=== PATIENT | female | born 1945 | race Caucasian/White ===

== ENCOUNTER → 2018-08-05 16:51 | Outpatient (CLI) | payer MEDICARE ==
[2010-04-04 13:32] VITALS: BMI 24.9
[~2018-08-05 16:51] MED LIST: ASPIRIN325 MG PO; NORCO 5/325 TAB1 TAB PO; TYLENOL PM1 TAB PO; VALIUM 2 MG TAB2 MG PO; VITAMIN D31000 UNI2 PO; ZANAFLEX4 MG PO
[2018-08-11 07:41] VITALS: BMI 24.6
== END | disposition home or self-care (01) ==
LOC: D.MAMMO 13:30
DX: Z85.3 Personal history of malignant neoplasm of breast (principal)

== ENCOUNTER 2018-08-11 06:25 | Day surgery (SDC) | payer MEDICARE ==
[~2018-08-11] VITALS: Ht 152.4 cm; Wt 57.3 kg
--- NOTE | ~2018-08-11 | OP ---
PATIENT NAME: AMBREEN SCOTT MEDICAL RECORD: [id number] :47 [facility] [place] DATE:08/11/18 SURGEON: NANCI GOMEZ DO DATE OF OPERATION: 08/11/2018 PROCEDURE: Colonoscopy with polypectomy. INDICATIONS FOR PROCEDURE: Abnormal findings on PET scan with an area of increased uptake in the distal descending colon along a previously resected site as well as a family history positive for colon cancer, history of malignant tumor of the colon, and history of malignant tumor of the rectum. SCOPE: K1 Speed video pediatric colonoscope. MEDICATIONS: Propofol 450 mg IV per anesthesia. WITHDRAWAL TIME: 29 minutes. ESTIMATED BLOOD LOSS: Minimal. COMPLICATIONS: None. FINDINGS: Informed consent was given. The patient was made comfortable with the above medication. After reaching an adequate level of sedation by slow IV push, the patient was placed on her left side. A digital rectal examination was performed and was normal. The endoscope was then advanced under direct visualization through the rectum to the cecum, confirmed by the presence of the ileocecal valve. In the cecum, there was an area that appeared to be a conglomerate of multiple flat and small polyps. The whole site itself measured approximately 1.2 cm x 1 cm. The area was lifted using normal saline and the majority of these polyps were removed using endoscopic mucosal resection technique with a hot snare. The remaining tissue was removed using a hot forceps and the entire area was cauterized. There was another polyp located in the sigmoid colon, which measured approximately 6 mm in diameter. It was semi-pedunculated. It was removed using a hot snare in one piece and completely retrieved. There were no other polyps visualized on today's examination, but the prep was inadequate as there was still a significant amount of stool, which could not be removed from the colon. Wjmh-pf-rgyizvwf diverticulosis was seen in the descending and sigmoid colon. Retroflexion was not performed due to stool being located in the rectal vault. The endoscope was withdrawn from the patient. The patient tolerated the procedure well and there were no complications. IMPRESSION: 1. Conglomerate of cecal polyps removed using a combination of endoscopic mucosal resection technique and hot forceps. 2. Sigmoid polyp removed using hot snare. 3. Cvpl-jd-uylryoda diverticulosis of the descending and sigmoid colon. 4. Inadequate prep. PLAN AND RECOMMENDATIONS: 1. Discharge home when recovery parameters are met. 2. Follow up biopsy specimen results. 3. High-fiber diet. 4. Continue current medications. OPERATIVE REPORT [id number] AMBREEN SCOTT 5. Recall colonoscopy in 4-6 weeks utilizing a different prep. It would be okay to use a MiraLax prep and consider adding milk of mag or magnesium citrate. TRANSINT:[id number] Voice Confirmation ID: [id number] DOCUMENT ID: [id number] NANCI GOMEZ DO at 1354 CC: [id number] DICTATION DATE: 08/11/18926 FINANCIAL ADVISOR TRAINEE: 08/11/18 1101 ADM IN [facility] [address] [place] [address]
[2018-08-11 07:03] LABS: BASOPHILS 0.5 % (0-2); EOSINOPHILS 1.8 % (0-7); HEMATOCRIT 37.2 % (36.0-48.0); HEMOGLOBIN 11.2 g/dL (12-16); IMMATURE GRANULOCYTES 0.5 % (0-5); LYMPHOCYTES 25.3 % (15-50); MCH 27.3 pg (26.0-34.0); MCHC 30.1 g/dL (31.0-37.0); MCV 90.5 fL (80.0-100.0); MEAN PLATELET VOLUME 9.4 fL (7.4-10.4); MONOCYTES 7.7 % (2-11); NEUTROPHILS 64.2 % (40-80); RBC 4.11 10x6/uL (4.00-5.40); RDW 15.7 % (11.5-14.5)
[2018-08-11 07:04] LABS: PLATELET COUNT 379 10x3/uL (130-400)
[2018-08-11 07:14] LABS: ANION GAP 12.3 mmol/L (8-16); CALCIUM 9.5 mg/dL (8.5-10.1); CARBON DIOXIDE 31.8 mmol/L (21.0-32.0); CREATININE - SERUM 0.9 mg/dL (0.6-1.3); POTASSIUM - SERUM 4.1 mmol/L (3.5-5.1)
[2018-08-11 07:41] VITALS: Ht 152.4 cm; Wt 57.3 kg
[2018-08-11] MEDS ORDERED: NORCO 5/325 TAB1 TAB PO (07:46)
[2018-08-11] MEDS ORDERED: VALIUM 2 MG TAB2 MG PO (07:47)
[2018-08-11] MEDS ORDERED: ASPIRIN325 MG PO (07:48)
[2018-08-11] MEDS ORDERED: VITAMIN D31000 UNI2 PO (07:49)
[2018-08-11] MEDS ORDERED: TYLENOL PM1 TAB PO (07:49)
[2018-08-11] MEDS ORDERED: ZANAFLEX4 MG PO (07:50)
== END 2018-08-11 10:45 | disposition home or self-care (01) ==
LOC: OBSVTIME → D.OPS 06:25 → D.SDCHOLD 10:16 → OBSVTIME 10:16 → D.SDCHOLD 10:16 → D.OPS 10:45
PROVIDERS: Anesthesiology
DX: K63.5 Polyp of colon (principal); K57.90 Diverticulosis of intestine, part unspecified, without perforation or abscess without bleeding; F32.9 Major depressive disorder, single episode, unspecified; F41.9 Anxiety disorder, unspecified; Z85.038 Personal history of other malignant neoplasm of large intestine; Z85.048 Personal history of other malignant neoplasm of rectum, rectosigmoid junction, and anus; Z72.0 Tobacco use

== ENCOUNTER 2019-03-04 08:56 | Day surgery (SDC) | payer MEDICARE ==
[~2019-03-04] VITALS: Ht 152.4 cm; Wt 56.4 kg
[2019-03-04 09:50] LABS: CALCIUM 9.5 mg/dL (8.5-10.1); CARBON DIOXIDE 32.9 mmol/L (21.0-32.0); CREATININE - SERUM 0.8 mg/dL (0.6-1.3); POTASSIUM - SERUM 3.9 mmol/L (3.5-5.1)
[2019-03-04] MEDS ORDERED: PHENERGAN25 M1 PO (09:52)
[2019-03-04 09:53] LABS: BASOPHILS 0.5 % (0-2); EOSINOPHILS 3.3 % (0-7); HEMATOCRIT 32.3 % (36.0-48.0); HEMOGLOBIN 9.4 g/dL (12-16); IMMATURE GRANULOCYTES 0.4 % (0-5); LYMPHOCYTES 23.2 % (15-50); MCH 25.7 pg (26.0-34.0); MCHC 29.1 g/dL (31.0-37.0); MCV 88.3 fL (80.0-100.0); MEAN PLATELET VOLUME 9.3 fL (7.4-10.4); MONOCYTES 8.4 % (2-11); NEUTROPHILS 64.2 % (40-80); PLATELET COUNT 380 10x3/uL (130-400); RBC 3.66 10x6/uL (4.00-5.40); RDW 18.4 % (11.5-14.5); WBC 10.8 10x3/uL (4.8-10.8)
[2019-03-04 09:56] VITALS: BP 122/67; Ht 152.4 cm; Wt 56.4 kg
--- NOTE | 2019-03-06 16:05 | OP ---
PATIENT NAME: AMBREEN SCOTT MEDICAL RECORD: [id number] :47 LOCATION:[facility] ADMISSION DATE: SURGEON: NANCI GOMEZ DO DATE OF OPERATION: 03/04/2019 PROCEDURE: Colonoscopy with polypectomy, biopsies, and tattooing. INDICATIONS FOR PROCEDURE: Abnormal findings on PET scan of the digestive tract on 02/27/2018 with increased uptake at a prior anastomosis, status post resection, chronic constipation, personal history of malignant tumor of the colon. SCOPE: Olympus video pediatric colonoscope. MEDICATIONS: Propofol 500 mg IV per anesthesia. ESTIMATED BLOOD LOSS: Minimal. COMPLICATIONS: None. FINDINGS AND DESCRIPTION OF PROCEDURE: Informed consent was given. The patient was made comfortable with the above medication. After reaching an adequate level of sedation by slow IV push, the patient was placed on her left side. The digital rectal examination was performed and was normal. The endoscope was then advanced under direct visualization through the rectum, to the ileocolonic anastomosis at approximately 50 to 55 cm from the anal verge. The endoscope was slowly withdrawn and the mucosa was carefully examined. The prep quality was fair. A significant amount of time was spent irrigating the colon, so that the entire mucosa could be seen. Near the ileocolonic anastomosis, there were 2 separate polyps that were benign-appearing. One was sessile, measuring approximately 2-3 mm in diameter and the other was more flat, measuring approximately 4-5 mm in diameter. They were both removed using a hot snare in one piece and completely retrieved. There were 2 polyps located approximately 40 cm from the anal verge. They were both sessile and benign-appearing. They ranged in size from 3-5 mm in diameter and were removed using a hot snare in 1 piece. There was a juvenile polyp located also near approximately 40 cm. It was biopsied using hot forceps and cauterized. A proximal anastomosis was located at approximately 30 cm from the anal verge. At this site, there was a polyp, which was benign appearing and sessile. It measured approximately 4-mm in diameter and was removed using a hot snare. There was also a tumor located at this site, which appeared to be somewhat located within a possible diverticulum that is a result of a previous resection and anastomosis. The site was ulcerated and very friable and bled when contacted. Multiple cold forceps biopsies were taken from this site to submit for pathology. The tumor itself measured approximately 1.5-2 cm in size. Three separate Dilma ink injections were made for tattooing purposes surrounding the tumor itself. On this procedure, retroflexion was performed, but there was not adequate amount of room to evaluate the rectal wall well. The endoscope was withdrawn from the patient. The patient tolerated the procedure well and there were no immediate complications. IMPRESSION: 1. Anastomotic tumor located approximately 30 cm, which was biopsied and tattooed. 2. Multiple polyps as described above, removed using a combination of a hot OPERATIVE REPORT [id number] AMBREEN SCOTT snare and hot forceps. PLAN AND RECOMMENDATIONS: 1. Discharge home when recovery parameters are met. 2. Follow up biopsy specimen results. 3. The patient will return to Dr. Wilson for further intervention of what appears to be recurrent versus residual colon cancer at the anastomotic site at approximately 30 cm. 4. Followup colonoscopies will be at the discretion of Dr. Wilson and the patient. TRANSINT:[id number] Voice Confirmation ID: [id number] DOCUMENT ID: [id number] NANCI GOMEZ DO at 1605 CC: [id number] DICTATION DATE: 03/04/19 1136 ASSISTANT MANAGER RETAIL: 03/04/19 1247 [facility] 03/04/19 [place] [id number] [place] [address]
== END 2019-03-04 12:25 | disposition home or self-care (01) ==
LOC: D.OPS 08:56
PROVIDERS: Anesthesiology; ATTEND Internal Medicine Gastroenterology
DX: C18.7 Malignant neoplasm of sigmoid colon (principal); D12.5 Benign neoplasm of sigmoid colon; K59.09 Other constipation; Z85.038 Personal history of other malignant neoplasm of large intestine; Z01.812 Encounter for preprocedural laboratory examination

== ENCOUNTER 2019-03-22 18:58 | Emergency (ER) | payer MEDICARE ==
[~2019-03-22] VITALS: Ht 152.4 cm; Wt 56.2 kg
[~2019-03-22 18:58] MED LIST changes: +PHENERGAN25 M1 PO
[2019-03-22 19:16] VITALS: Ht 152.4 cm; Wt 56.2 kg
[2019-03-22] MEDS ORDERED: PROZAC10 MG PO (19:17)
[2019-03-22 20:50] LABS: APPEARANCE CLEAR (CLEAR); BILIRUBIN NEGATIVE (NEGATIVE); COLOR YELLOW (YELLOW); GLUCOSE NEGATIVE (NEGATIVE); KETONE NEGATIVE (NEGATIVE); NITRITE NEGATIVE (NEGATIVE); PROTEIN NEGATIVE (NEGATIVE); UROBILINOGEN NORMAL (NORMAL)
[2019-03-22 21:47] VITALS: BP 136/63
== END 2019-03-22 21:47 | disposition home or self-care (01) ==
LOC: D.ER 18:58
PROVIDERS: Family Medicine
DX: S32.059A Unspecified fracture of fifth lumbar vertebra, initial encounter for closed fracture (principal); X58.XXXA Exposure to other specified factors, initial encounter; Y93.9 Activity, unspecified; Y92.89 Other specified places as the place of occurrence of the external cause

== ENCOUNTER 2019-05-04 17:09 | Inpatient (IN) | payer MEDICARE ==
[~2019-05-04] VITALS: Ht 165.1 cm; Wt 57.2 kg
--- NOTE | ~2019-05-04 | OP ---
PATIENT NAME: AMBREEN SCOTT MEDICAL RECORD: [id number] :47 LOCATION:[id number] ADMISSION DATE:05/12/19 SURGEON: MARK PERRIN MD DATE OF OPERATION: 05/12/2019 PREOPERATIVE DIAGNOSES: 1. Recurrent colon cancer. 2. Orr syndrome. 3. COPD. 4. Tobacco dependence syndrome. 5. Vertebral body fracture. POSTOPERATIVE DIAGNOSES: 1. Recurrent colon cancer. 2. Orr syndrome. 3. COPD. 4. Tobacco dependence syndrome. 5. Vertebral body fracture. PROCEDURES: 1. Hand-assisted laparoscopic subtotal colectomy. 2. Laparoscopic extensive lysis of adhesions. 3. Abdominal wound VAC placement. SURGEON: Mark Perrin MD REPORT OF PROCEDURE: The patient's abdomen was prepped and draped in sterile fashion. A cutdown was made in the midline surrounding the patient's umbilicus. An electrocautery was used to dissect through the subcutaneous tissues and we encountered a large hernia at the umbilical region. We entered through the hernia sac and penetrated the abdominal cavity. There were some adhesions present to the anterior abdominal wall and these were taken down with blunt dissection and occasional sharp dissection. We eventually were able to make a large enough the ring so we could place the Gelport wound protector and then the Gelport was inserted with a 5-mm trocar within it. We insufflated the abdomen and placed a 5-mm trocar in the right upper quadrant and another in the epigastric region. We began dissection of the adhesions to the anterior abdominal wall. These were mainly adhesions of the omentum, but some of the small bowel was adherent to the wall. Careful tedious dissection was performed to take all of the adhesions down including some pretty dense adhesions in the pelvis of the small bowel to the pelvic wall and to the colon. Once we had the small bowel completely freed up, then we took down the white line of Toldt on the left lateral abdomen. We were able to mobilize this portion of the colon medially, but there were a lot of adhesions present from her previous sigmoid colectomy. The splenic flexure was mobilized. As we came down the transverse colon, we dissected the tissues off of the superior aspect of the colon, which included some scar tissue and adhesions along with the omentum. As we came to the proximal transverse colon, we could see an enterocolonic anastomosis from previous right hemicolectomy. We eventually eviscerated the transverse colon and the old anastomosis through the wound protector. The small bowel was transected using a 75 blue load CARMEN stapler. The mesentery was then taken down with sequential clamp and tie technique all the way around towards the proximal aspect of the colon in the area of the sigmoid colon. The patient had a large mass present at the splenic flexure, which was adherent to the lateral wall of the abdomen. Lateral portion of the abdominal wall plus this mass were all OPERATIVE REPORT [id number] AMBREEN SCOTT excised with the specimen. We took down the mesentery at its base using clamp and tie technique with 3-0 silks. We eventually went back in laparoscopically and were able to transect the colon at the pelvic reflection by placing a window in the mesentery and coming through with a 55 blue load Endo-CARMEN stapler. The mesentery was then taken down with 55 white load Endo-CARMEN stapler and this portion of the colon was sent off for permanent specimen. We then eviscerated the small bowel and opened up the distal end of the small bowel in order to place a 21 EEA stapler anvil through the antimesenteric side of the small bowel. Once this was done, then we stapled off the end of the small bowel using a 30 blue load TA stapler and oversewed the staple line with Lemberted 3-0 silks. We placed this back into the abdominal cavity and then ran the multiple rectal dilators up through the anus; but with placement of the 29 dilator, we penetrated the posterior aspect of the patient's rectum. For this reason, we ended up taking another portion of the rectum proximally using a 55 blue load Endo-CARMEN stapler and the mesentery was taken down with a 55 white load Endo-CARMEN stapler. The patient's left ureter was visualized through this portion of the case and was protected through this dissection. We then placed a 21 EEA stapler through the rectum and performed an anastomosis under direct visualization. At the conclusion of this, we had 2 intact rings of tissue present in the stapler and we checked the staple line by instilling air through the rectum with the anastomosis under water. There was no sign of any leak present. We then irrigated out the abdomen thoroughly with normal saline. The patient had some bleeding from a 12-mm trocar, which had been placed in the right lower quadrant. The internal aspect of this was oversewn with [id number]-ta-yaxnv 3-0 Vicryl and the fascia was closed anteriorly with a single interrupted #0 Vicryl. There did not appear to be any further bleeding present at that time. We then closed the trocar sites with jatinder. The midline fascia was closed with running #1 loop PDS times 2 and a wound VAC was applied. COMPLICATIONS: None. CONDITION: Stable. ANESTHESIA: General endotracheal. BLOOD LOSS: 300 mL. TRANSINT:[id number] Voice Confirmation ID: [id number] DOCUMENT ID: [id number] MARK PERRIN MD CC: AMADOU MCFARLANE MD and NOVA ARTEAGA [id number] DICTATION DATE: 05/12/19 1513 ENVIRONMENTAL OFFICER: 05/12/19 1604 ADM IN [facility] [address] [place] [address]
--- NOTE | ~2019-05-04 | DS ---
PATIENT:AMBREEN SCOTT :47 MEDICAL RECORD: [id number] DISCHARGE SUMMARY ADMISSION DATE: 05/12/19 DISCHARGE DATE: 05/18/19 DATE OF ADMISSION: 05/12/2019. DATE OF DISCHARGE: 05/18/2019. ADMISSION DIAGNOSES: 1. Recurrent colon cancer. 2. Orr syndrome. 3. Chronic obstructive pulmonary disease, on chronic O2. 4. Ventral incisional hernia. 5. Chronic anemia. DISCHARGE DIAGNOSES: 1. Recurrent colon cancer. 2. Orr syndrome. 3. Chronic obstructive pulmonary disease, on chronic O2. 4. Ventral incisional hernia. 5. Chronic anemia. PROCEDURE: 1. Hand-assisted laparoscopic subtotal colectomy with ileorectal anastomosis. 2. Ventral hernia repair without mesh. CONSULTATIONS: None. REPORT OF HOSPITALIZATION: The patient was admitted to the hospital after a successful hand-assisted laparoscopic subtotal colectomy with repair of a ventral incisional hernia. Postoperatively, the patient had an ileus that lasted for a few days, eventually we were able to clamp the patient's NG tube and allowed her to have some oral intake, which she tolerated. Over the next couple of days, she began having bowel function starting with passage of flatus and followed by a bowel movement on the day of discharge. She was tolerating a regular diet at the time of discharge without complication. She had some abdominal discomfort, but most of her pain was in her back where she has a known fracture. 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 The patient had a wound VAC in place for the hand port near the umbilicus. This was healing in nicely and was visualized on 2 separate occasions during wound VAC changes. On the day of discharge, the patient was down to 3 liters O2, which she normally uses about 2 liters of O2 at home. She was able to ambulate with her normal restrictions and her main complaint was pain in the back. DISCHARGE INSTRUCTIONS: Return to clinic or call with any questions or concerns, fevers, chills, nausea, vomiting or worsening abdominal pain. ACTIVITIES: No heavy lifting or straining for 6 weeks postoperatively. FOLLOWUP: In clinic with me in 2 weeks. DISCHARGE MEDICATIONS: Resume home meds with the inclusion of Seligman 10s. DISCHARGE SUMMARY REPORT [id number] AMBREEN SCOTT TRANSINT:[id number] Voice Confirmation ID: [id number] DOCUMENT ID: [id number] YUE PERRIN MD CC: [id number] DICTATION DATE: 05/18/19 1336 PORT DRIER: 05/19/19 0003 DIS IN 05/18/19 [facility] [address] [place] [id number]
[~2019-05-04 17:09] MED LIST changes: +HYDROCODON-ACE1 EAC7 PO; -NORCO 5/325 TAB1 TAB PO; +PROZAC10 MG PO
[2019-05-11 11:54] LABS: BASOPHILS 0.6 % (0-2); EOSINOPHILS 4.4 % (0-7); HEMATOCRIT 40.3 % (36.0-48.0); HEMOGLOBIN 12.8 g/dL (12-16); IMMATURE GRANULOCYTES 0.3 % (0-5); LYMPHOCYTES 27.2 % (15-50); MCH 31.5 pg (26.0-34.0); MCHC 31.8 g/dL (31.0-37.0); MCV 99.3 fL (80.0-100.0); MEAN PLATELET VOLUME 9.6 fL (7.4-10.4); MONOCYTES 9.1 % (2-11); NEUTROPHILS 58.4 % (40-80); RBC 4.06 10x6/uL (4.00-5.40); RDW 19.4 % (11.5-14.5)
[2019-05-11 11:58] LABS: PLATELET COUNT 278 10x3/uL (130-400)
[2019-05-11 12:07] LABS: CALC OSMOLALITY 277 mosm/kg (275-300); CALCIUM 9.3 mg/dL (8.5-10.1); CARBON DIOXIDE 33.6 mmol/L (21.0-32.0); CHLORIDE - SERUM 102 mmol/L (98-107); CREATININE - SERUM 0.7 mg/dL (0.6-1.3); GLUCOSE 87 mg/dL (74-106); POTASSIUM - SERUM 4.3 mmol/L (3.5-5.1); SODIUM 141 mmol/L (136-145); UREA NITROGEN 8 mg/dL (7-18); eGFR NON AFRICAN AMERICAN 87 mL/min (90-120)
[2019-05-12] VITALS (8 sets, daily range): BP systolic 93–134; BP diastolic 44–72; BMI 21.0
[2019-05-12 09:10] LABS: APTT 34.3 SECONDS (22.8-39.4); INR 1.13 (0.85-1.17)
--- NOTE | 2019-05-12 16:52 | NUR ---
RECIEVED PT FROM PACU. LYING ON LEFT SIDE WITH EYES CLOSED. NG NOTED TO LIS WITH GREENISH DRAINAGE. OXYGEN AT 4LNC. BLOUNT PATENT WITH YELLOW URINE. SCDS ON BILAT. WOUND VAC IN PLACE TO ABDOMINAL WOUND TO 125MM/hG. 2 BANDAIDS NOTED TO UPPER ABDOMEN WITH NO DRAINAGE NOTED. FAMILY AT BEDSIDE. AROUSES TO VOICE BUT DOES NOT COMPLAIN OF PAIN CURRENTLY. STATES IM COLD. COVERED IN BLANKETS AND HEAD WRAPPED IN BLANKET. CALL LIGHT IN REACH
--- NOTE | 2019-05-12 19:07 | NUR ---
CONSULTED ANESTHESIA REGARDING DECREASED BLOOD PRESSURE 90/52. VERBAL ORDERS RECEIVED FROM TRANG ZAMORA CRNA/ DR JARQUIN TO GIVE A 500CC BOLUS OF LR IN PACU NOW. VERBAL ORDERS RECEIVED AND IMPLEMENTED. WILL CONTINUE TO MONITOR.
[2019-05-13 01:32] VITALS: BP 108/66
--- NOTE | 2019-05-13 03:13 | NUR ---
I have reviewed this patient and I concur with the Shift Assessment completed by the Licensed Practical Nurse today this shift.
[2019-05-13 04:40] LABS: BASOPHILS 0.1 % (0-2); EOSINOPHILS 0 % (0-7); IMMATURE GRANULOCYTES 0.2 % (0-5); LYMPHOCYTES 10.6 % (15-50); MCH 31.3 pg (26.0-34.0); MCHC 31.5 g/dL (31.0-37.0); MCV 99.6 fL (80.0-100.0); MEAN PLATELET VOLUME 9.3 fL (7.4-10.4); NEUTROPHILS 78.1 % (40-80); RDW 19.5 % (11.5-14.5)
[2019-05-13 04:58] LABS: HEMOGLOBIN 8.4 g/dL (12-16); RBC 2.68 10x6/uL (4.00-5.40); WBC 12.4 10x3/uL (4.8-10.8)
[2019-05-13 04:59] LABS: HEMATOCRIT 26.7 % (36.0-48.0); PLATELET COUNT 207 10x3/uL (130-400)
[2019-05-13 05:23] VITALS: BP 104/60
[2019-05-13 07:45] LABS: ANION GAP 9.2 mmol/L (8-16); CALCIUM 8.1 mg/dL (8.5-10.1); CARBON DIOXIDE 28.1 mmol/L (21.0-32.0)
[2019-05-13 07:46] LABS: CREATININE - SERUM 0.9 mg/dL (0.6-1.3); POTASSIUM - SERUM 5.3 mmol/L (3.5-5.1)
[2019-05-13 08:44] VITALS: BP 83/50
--- NOTE | 2019-05-13 11:42 | NUR ---
PT REPOSITIONED ON LEFT SIDE FOR COMFORT. AROUSES EASILY. NO COMPLAINTS AT PRESENT. USING HAT MAKER NEEDED. CALL LIGHT IN REACH
[2019-05-13 12:08] VITALS: Ht 165.1 cm; Wt 57.2 kg
[2019-05-13 13:18] LABS: HEMATOCRIT 27.6 % (36.0-48.0); HEMOGLOBIN 8.6 g/dL (12-16)
[2019-05-13 13:31] VITALS: BP 98/47
--- NOTE | 2019-05-13 13:39 | MORECARE ---
CASE MANAGEMENT DISCHARGE SUMMARY PATIENT: AMBREEN SCOTT UNIT: [id number] ADM DATE: 05/12/19 AGE: 73 : 46 SEX: F ROOM/BED: D.2203 AUTHOR: MIGUEL SALGUERO PHYSICIAN: REFERRING PHYSICIAN: YUE PERRIN MD DATE OF SERVICE: 05/13/19 Discharge Plan Patient Name: AMBREEN SCOTT [facility] [facility] 1945 Planned Disposition: Anticipated Discharge Date: Discharge Date: Expected LOS: Initial Reviewer: [email or web address] Initial Review Date: 05/12/2019 Generated: 05/13/19 2:39 pm Comments DCP- Discharge Planning Updated by [email or web address]: Isabella Kate on 05/13/19 12:[address] I attempted to see patient she was sleeping with an NGT intact. No family at bedside. CM will attempt to see her at a later date Patient Name: AMBREEN SCOTT Page [id number] at 1339 All edits/amendments must be made on the electronic document DICTATION DATE: 05/13/19 133 PHOTOCOMPOSING MACHINE OPERATOR: ROGELIO 05/13/19 1339 RPT#: [id number] DC DATE: STATUS: ADM IN [facility] [address] [place] [address] END OF REPORT
--- NOTE | 2019-05-13 13:53 | NUR ---
PT SAT ON SIDE OF BED WITH THERAPY X 10 MIN. REPSOTIONED ON RIGHT SIDE FOR COMFORT. C/O PAIN-ENCOURAGED PT TO USE PEDIATRIC IMMUNOLOGIST BUTTON WHICH SHE DID. CALL LIGHT IN REACH
--- NOTE | 2019-05-13 14:04 | NUR ---
INCENTIVE SPRIOMETRY GIVEN TO PT AND INSTRUCTED IN USE. PT ABLE TO PULL 500CCML X 5 TIMES. COUGHED AFTERWARDS. EXPLAINED TO PT TO USE Q HOUR X 10 WHEN AWAKE. STATES SHE WILL TRY. ENCOURAGED TO REST AT THIS MOMENT. CALL LIGHT AND INTERPRETER TRANSLATOR IN HAND
--- NOTE | 2019-05-13 15:15 | NUR ---
DR PERRIN PAGED REGARDING REPEAT H/H RESULTS
[2019-05-13 17:21] VITALS: BP 98/58
--- NOTE | 2019-05-13 19:25 | NUR ---
LYING IN BED TALKING TO FAMILY. REPORTS PAIN IN ABD 8. LICSW DILAUDID IN USE. MILD CONFUSION NOTED. NS @ 100 MLHR INFUSING IN RT FOREARM WITHOUT DIFF. WOUND VAC NOTED TO MID ABD WITH SCANT AMOUNT OF BLOODY DRAINAGE IN TUBING. LAP SITES X3 NOTED TO ABD. NGT TO RT NARE TO LIS WITH SMALL AMOUNT OF GREEN DRAINAGE IN CANISTER. O2 @ 4L/NC. RESP NONLABORED. ANXIOUS. STATES SHE WANTS THE NGT OUT AND NEEDS TO GO HOME BY SATURDAY. RESERVE LT ARM. PAIGE ALARM ON FOR PT SAFETY. SR ELEVATED X2. CL IN REACH.
[2019-05-13 21:25] VITALS: BP 109/48
--- NOTE | 2019-05-14 01:58 | NUR ---
RESTING QUIETLY WITH EYES CLOSED. NGT TO LIS. IV INFUSING WITHOUT DIFF. NO DISTRESS. RESP EVEN AND NONLABORED. SR ELEVATED X2. CL IN REACH. PAIGE ALARM ON.
[2019-05-14 02:22] VITALS: BP 122/50
[2019-05-14 05:55] VITALS: BP 112/51
[2019-05-14 06:08] LABS: BASOPHILS 0.2 % (0-2); EOSINOPHILS 0.1 % (0-7); HEMATOCRIT 25.3 % (36.0-48.0); HEMOGLOBIN 7.7 g/dL (12-16); IMMATURE GRANULOCYTES 0.3 % (0-5); LYMPHOCYTES 13.6 % (15-50); MCH 31.3 pg (26.0-34.0); MCHC 30.4 g/dL (31.0-37.0); MEAN PLATELET VOLUME 10.2 fL (7.4-10.4); MONOCYTES 7.7 % (2-11); NEUTROPHILS 78.1 % (40-80); PLATELET COUNT 232 10x3/uL (130-400); RBC 2.46 10x6/uL (4.00-5.40); RDW 19.9 % (11.5-14.5); WBC 11.8 10x3/uL (4.8-10.8)
[2019-05-14 06:15] LABS: MCV 102.8 fL (80.0-100.0)
[2019-05-14 06:38] LABS: CALC OSMOLALITY 276 mosm/kg (275-300); CALCIUM 8.4 mg/dL (8.5-10.1); CARBON DIOXIDE 26.4 mmol/L (21.0-32.0); CHLORIDE - SERUM 107 mmol/L (98-107); CREATININE - SERUM 0.7 mg/dL (0.6-1.3); GLUCOSE 75 mg/dL (74-106); POTASSIUM - SERUM 4.6 mmol/L (3.5-5.1); SODIUM 139 mmol/L (136-145); UREA NITROGEN 12 mg/dL (7-18); eGFR NON AFRICAN AMERICAN 87 mL/min (90-120)
--- NOTE | 2019-05-14 07:47 | NUR ---
PT LAYING ON BACK AT PRESENT. HOB UP 45 DEGREES. NG TO NARE WITH GREEN LIQUID NOTED AT LIS. OXYGEN IN PLACE WITH DIMINISHED BREATH SOUNDS. COUGHS OCCASIONALLY. WOUND VAC IN PLACE TO 125MM/hG SUCTION. BLOUNT NOTED AND DRAINING. BILAT SCDS ON IN PLACE. CALL LIGHT IN REACH. ENCOURAGED TO USE MAILROOM SUPERVISOR BUTTON NEEDS FOR PAIN CONTROL.
[2019-05-14 09:41] VITALS: BP 114/55
--- NOTE | 2019-05-14 11:43 | NUR ---
PT SAT UP IN CHAIR AT BEDSIDE PER THERAPY X 1 HOUR. BACK TO BED AND BLOUNT REMOVED. COUGHED UP A LOT OF WHITE PHLEGM AFTER RT TX. CALL LIGHT IN REACH
[2019-05-14 13:51] VITALS: BP 103/45
--- NOTE | 2019-05-14 14:39 | MORECARE ---
CASE MANAGEMENT DISCHARGE SUMMARY PATIENT: AMBREEN SCOTT UNIT: [id number] ADM DATE: 05/12/19 AGE: 73 : 46 SEX: F ROOM/BED: D.2203 AUTHOR: JOSE MDOC PHYSICIAN: REFERRING PHYSICIAN: YUE PERRIN MD DATE OF SERVICE: 05/14/19 Discharge Plan Patient Name: AMBREEN SCOTT Facility: [facility]:[place] : 1945 Planned Disposition: Home or Self Care Anticipated Discharge Date: Discharge Date: Expected LOS: Initial Reviewer: [email or web address] Initial Review Date: 05/12/2019 Generated: 05/14/19 3:39 pm Comments DCP- Discharge Planning Updated by [email or web address]: Isabella Kate on 05/14/19 1:[address] Patient Name: AMBREEN SCOTT Admission Status: Elective Accout number: [id number] Admission Date: 05-12-2019 : 1945 Admission Diagnosis:MALIGNANT NEOPLASM OF COLON, UNSPECIFIED Attending: YUE PERRIN Current LOS: 2 Anticipated DC Date: Planned Disposition: Home or Self Care Primary Insurance: MEDICARE A & B Discharge Planning Comments: CM met with patient to complete initial dc planning assessment. CM educated patient on the CM role and verbal consent given by patient to complete assessment. Patient lives at home with her where she is independent with her care. At discharge patient plans to return home and feels this is a safe discharge. CM discussed availability of home health, rehab services, and medical equipment. She has home O2 and a nebulizer from [facility]. JAXON signed and placed in chart. At discharge her will be driving her home when she is discharged. Patient denied known discharge needs at this time. CM will continue to follow and will assist as needed with dc plans/needs. Spooling Supervisor: Isabella Kate DCP- Discharge Planning Updated by [email or web address]: Isabella Kate on 05/13/19 12:[address] I attempted to see patient she was sleeping with an NGT intact. No family at bedside. CM will attempt to see her at a later date DCPIA - Discharge Planning Initial Assessment Updated by [email or web address]: Isabella Kate on 05/14/19 2:32 pm * Is the patient Alert and Oriented? Yes * How many steps to enter\exit or inside your home? * PCP [facility] ([facility]) * Pharmacy [facility] [address] * Preadmission Environment Home with Family * ADLs Independent * Equipment Nebulizer Oxygen * List name and contact numbers for known caregivers / representatives who currently or will assist patient after discharge: DIANE SCOTT (SPOUSE) [phone] * Verbal permission to speak to the caregivers and representatives has been obtained from the patient. N/A * Community resources currently utilized None * Additional services required to return to the preadmission environment? No * Can the patient safely return to the preadmission environment? Yes * Has this patient been hospitalized within the prior 30 days at any hospital? No Coverage Notice Reviewer: [id number] Nadiya Kate Notice Issued Date-Time: 05/14/2019 14:30 Notice Type: Patient Choice Letter Notice Delivered To: Patient Relationship to Patient: Silk Screen Printing Racker Name: Delivery Method: - Ronel Days: Prior Verbal Notification: Recipient Understood Notice: Recipient Signature: Med Rec Note Co-signed by Attending: Coverage Notice Comment: Last DP export: 05/13/19 12:39 p Patient Name: AMBREEN SCOTT Page [id number] at 1439 All edits/amendments must be made on the electronic document DICTATION DATE: 05/14/191437 MOLD FILLING OPERATOR: ROGELIO 05/14/191437 RPT#: [id number] DC DATE: STATUS: ADM IN [facility] [address] [place] [address] END OF REPORT
[2019-05-14 17:46] VITALS: BP 121/54
--- NOTE | 2019-05-14 19:25 | NUR ---
LYING IN BED. ALERT AND ORIENTED X4. RESP EVEN AND NONLABORED. O2 @ 4L/NC. NGT NOTED TO RT NARE TO LIS WITH GREEN DRAINAGE IN CANISTER. WOUND VAC NOTED TO MID ABD WITH SCANT AMOUNT OF BLOOD IN CANISTER. SCDS ON. PROD COUGH WITH PINK TINGED SPUTUM. BOWEL SOUNDS HYPOACTIVE X4 QUADS. DENIES PASSING GAS. RATES PAIN 8 IN ABD. CHIP SILO TENDER DILAUDID IN USE BUT NOT USING VERY OFTEN. NS @ 100 MLHR INFUSING IN RT FOREARM WITHOUT DIFF. PAIGE ALARM ON FOR PT SAFETY. PT IRRITABLE. SCDS ON BUT ASKED STAFF TO REMOVE THEM BECAUSE THEY ARE HURTING HER LEGS. CL IN REACH.
[2019-05-14 21:13] VITALS: BP 134/63
--- NOTE | 2019-05-14 23:00 | NUR ---
ASSISTED UP TO BSC TO VOID. PT VOIDED 400 ML AT THIS TIME. ASSISTED BACK TO BED. IRRITABLE. ENCOURAGED TO USE NETWORK TECHNICAL ANALYST PUMP. CL IN REACH. PAIGE ALARM ON.
[2019-05-15 00:29] VITALS: BP 124/60
--- NOTE | 2019-05-15 05:00 | NUR ---
LYING IN BED WITH EYES CLOSED. HAS RESTED WELL. NO DISTRESS. RESP EVEN AND NONLABORED. SR ELEVATED X2. CL IN REACH. PAIGE ALARM ON.
[2019-05-15 05:28] VITALS: BP 145/63
[2019-05-15 06:58] LABS: BASOPHILS 0.3 % (0-2); EOSINOPHILS 0.5 % (0-7); HEMATOCRIT 25.1 % (36.0-48.0); HEMOGLOBIN 7.7 g/dL (12-16); IMMATURE GRANULOCYTES 0.6 % (0-5); LYMPHOCYTES 11.2 % (15-50); MCHC 30.7 g/dL (31.0-37.0); MCV 104.1 fL (80.0-100.0); MEAN PLATELET VOLUME 9.9 fL (7.4-10.4); MONOCYTES 5.9 % (2-11); NEUTROPHILS 81.5 % (40-80); PLATELET COUNT 244 10x3/uL (130-400); RBC 2.41 10x6/uL (4.00-5.40); RDW 19.4 % (11.5-14.5); WBC 11.7 10x3/uL (4.8-10.8)
[2019-05-15 07:21] LABS: CALC OSMOLALITY 280 mosm/kg (275-300); CALCIUM 8.3 mg/dL (8.5-10.1); CARBON DIOXIDE 24.5 mmol/L (21.0-32.0); CHLORIDE - SERUM 109 mmol/L (98-107); CREATININE - SERUM 0.7 mg/dL (0.6-1.3); POTASSIUM - SERUM 4.1 mmol/L (3.5-5.1); SODIUM 142 mmol/L (136-145); UREA NITROGEN 14 mg/dL (7-18); eGFR NON AFRICAN AMERICAN 87 mL/min (90-120)
[2019-05-15 07:25] LABS: GLUCOSE 51 mg/dL (74-106)
[2019-05-15 10:43] VITALS: BP 143/63
--- NOTE | 2019-05-15 13:00 | NUR ---
Nutrition Follow Up: Chart reviewed. Pt continues NPO. I>O Wt stable Meds and Labs reviewed Rec advancing PATRICIA when medically feasible. Rec consider starting Procalamine. RD following.
[2019-05-15 14:27] VITALS: BP 127/60
--- NOTE | 2019-05-15 15:35 | NUR ---
WOUND VAC DRESSING CHANGE DATE: 05/15/19 WOUND LOCATION: MIDLINE LOWER ABD WOUND MEASUREMENTS:6CM X 3CM X 3CM WOUND DESCRIPTION: RED/PINK MUSCLE, TENDON, OR BONE EXPOSED? NO DRAINAGE AMOUNT/DESCRIPTION: SMALL SEROSANGUINOUS ODOR? NO TYPE OF SPONGE USED AND AMOUNT: BLACK - 1 FOR WOUND BED + 1 FOR trac pad SETTINGS: -125MMHG LOW CONTINUOUS TEACHING: PURPOSE OF WOUND VAC PT TOLERATED WELL.
[2019-05-15 15:48] VITALS: BP 116/48
--- NOTE | 2019-05-15 16:38 | NUR ---
I have reviewed this patient and I concur with the Shift Assessment completed by the Licensed Practical Nurse today this shift.
--- NOTE | 2019-05-15 19:35 | NUR ---
AGITATED. YELLING AT STAFF WHILE BEING ASSISTED UP TO BSC. SOB. O2 @ 4L/NC. SAO2 88%. O2 INCREASED TO 5L/HFC AT THIS TIME. PROD COUGH WITH PINK SPUTUM. BREATH SOUNDS DIMINISHED IN RT LOBES. WOUND VAC NOTED TO ABD WTIH SCANT AMT OF BLOODY DRAINAGE. REFUSES TO WEAR SCDS. D5 1/2 NS WITH 20 MEQ KCL @ 100 ML/HR INFUSING IN RT WRIST WITHOUT DIFF. DILAUDID RETURNED GOODS REPAIRER IN USE. PAIGE ALARM IN USE FOR PT SAFETY. ENCOURAGED TO COUGH AND DEEP BREATHE AND USE I.S. CL IN REACH.
[2019-05-15 20:38] VITALS: BP 118/64
[2019-05-16] VITALS: BP 124/58
--- NOTE | 2019-05-16 03:16 | NUR ---
ASSISTED UP TO BSC. SOB. SAO2 89 WITH O2 @ 5L/HFC. NOTIFIED RT AND REQUESTED UD. RT IN ROOM AT THIS TIME. SAO2 92%. PT AGITATED.
--- NOTE | 2019-05-16 03:36 | NUR ---
PT CALLED FAMILY MEMBER TELLING THEM THAT STAFF HAS INCREASED HER O2. STILL AGITATED. ARGUES WITH ALL STAFF THAT SHE ENCOUNTERS.
[2019-05-16 04:00] VITALS: BP 116/74
--- NOTE | 2019-05-16 04:32 | NUR ---
LYING IN BED WITH EYES CLOSED. RESP NONLABORED. NO DISTRESS. JUST NOW FALLING ASLEEP AFTER BEING AWAKE MOST OF THE NIGHT. CL IN REACH. PAIGE ALARM ON.
[2019-05-16 05:45] LABS: BASOPHILS 0.2 % (0-2); EOSINOPHILS 2.6 % (0-7); HEMATOCRIT 24.6 % (36.0-48.0); HEMOGLOBIN 7.8 g/dL (12-16); IMMATURE GRANULOCYTES 0.5 % (0-5); LYMPHOCYTES 10.8 % (15-50); MCH 32.4 pg (26.0-34.0); MCHC 31.7 g/dL (31.0-37.0); MEAN PLATELET VOLUME 9.4 fL (7.4-10.4); MONOCYTES 7.7 % (2-11); NEUTROPHILS 78.2 % (40-80); PLATELET COUNT 264 10x3/uL (130-400); RBC 2.41 10x6/uL (4.00-5.40); RDW 18.7 % (11.5-14.5)
[2019-05-16 05:47] LABS: MCV 102.1 fL (80.0-100.0); WBC 8.7 10x3/uL (4.8-10.8)
[2019-05-16 05:53] LABS: CALCIUM 8.3 mg/dL (8.5-10.1); CHLORIDE - SERUM 107 mmol/L (98-107); CREATININE - SERUM 0.7 mg/dL (0.6-1.3); POTASSIUM - SERUM 3.9 mmol/L (3.5-5.1); SODIUM 142 mmol/L (136-145); eGFR NON AFRICAN AMERICAN 87 mL/min (90-120)
[2019-05-16 05:54] LABS: CALC OSMOLALITY 283 mosm/kg (275-300); CARBON DIOXIDE 30.8 mmol/L (21.0-32.0); GLUCOSE 147 mg/dL (74-106); UREA NITROGEN 8 mg/dL (7-18)
[2019-05-16 08:46] VITALS: BP 163/97
--- NOTE | 2019-05-16 09:15 | NUR ---
PT ALERT X 4. BREATH SOUNDS CLEAR BILAT, 5L HF NC. IV TO RIGHT FOREARM, PATENT, DRESSING CDI. LAP SITES TO ABDOMEN, TENDER, NON-DISTENDED AND SOFT, BOWEL SOUNDS HYPOACTIVE TO ALL MANUEL. WOUND VAC IN PLACE TO ABDOMEN, SCANT OUTPUT. PT REPORTING PAIN OF 7/10, PUBLIC SERVICE OFFICER IN PLACE, WILL MONITOR. BED LOW, CALL LIGHT IN REACH. NO OTHER NEEDS AT THIS TIME.
[2019-05-16 12:42] VITALS: BP 137/58
[2019-05-16 18:26] VITALS: BP 131/72
--- NOTE | 2019-05-16 20:00 | NUR ---
PT SITTING UP IN BED WITHOUT DISTRESS, ALERT AND ORIENTED. STATES PAIN IN ABD 10. GAVE SCHEDULED TORADOL, DILAUDID CABLE ENGINEER OUTSIDE PLANT IN USE. O2 3L/NC. LAP SITES AND INCISION WITH WOUND VAC CDI. DENIES NEEDS AT THIS TIME. CL IN REACH, WILL CTM
[2019-05-16 20:14] VITALS: BP 139/62
[2019-05-17 02:19] VITALS: BP 138/69
[2019-05-17 06:01] VITALS: BP 156/65
[2019-05-17 06:15] LABS: BASOPHILS 0.3 % (0-2); EOSINOPHILS 6.1 % (0-7); IMMATURE GRANULOCYTES 0.4 % (0-5); LYMPHOCYTES 18.4 % (15-50); MCH 31.6 pg (26.0-34.0); MCHC 31.3 g/dL (31.0-37.0); MCV 101.3 fL (80.0-100.0); MEAN PLATELET VOLUME 9.6 fL (7.4-10.4); NEUTROPHILS 65.8 % (40-80); PLATELET COUNT 290 10x3/uL (130-400); RBC 2.37 10x6/uL (4.00-5.40); RDW 18.6 % (11.5-14.5); WBC 6.9 10x3/uL (4.8-10.8)
[2019-05-17 06:19] LABS: HEMOGLOBIN 7.5 g/dL (12-16)
[2019-05-17 06:24] LABS: CALCIUM 8.6 mg/dL (8.5-10.1); CARBON DIOXIDE 34.1 mmol/L (21.0-32.0); CHLORIDE - SERUM 105 mmol/L (98-107); POTASSIUM - SERUM 3.7 mmol/L (3.5-5.1); SODIUM 141 mmol/L (136-145)
[2019-05-17 06:26] LABS: CALC OSMOLALITY 277 mosm/kg (275-300); CREATININE - SERUM 0.5 mg/dL (0.6-1.3); GLUCOSE 94 mg/dL (74-106); UREA NITROGEN 4 mg/dL (7-18); eGFR NON AFRICAN AMERICAN > 90 mL/min (90-120)
--- NOTE | 2019-05-17 09:19 | NUR ---
PT ALERT X 4. WHEEZES TO RIGHT SIDE, 3L O2 PER NC, RESPIRATIONS SHALLOW. ABDOMEN DISTENDED AND TENDER BUT SOFT, LAP SITES, WOUND VAC IN PLACE, SCANT OUTPUT. PT REPORTING PAIN OF 6/10, PROCESS CONTROL TECH IN PLACE, WILL MONITOR. IV TO RIGHT FOREARM, PATENT, DRESSING CDI. BED LOW, CALL LIGHT IN REACH. NO OTHER NEEDS AT THIS TIME.
[2019-05-17 09:50] VITALS: BP 156/63
[2019-05-17 12:59] VITALS: BP 140/62
[2019-05-17 18:47] VITALS: BP 144/60
[2019-05-17 20:00] VITALS: BP 155/61
--- NOTE | 2019-05-17 20:00 | NUR ---
PT SITTING UP IN BED WITHOUT DISTRESS, ALERT AND ORIENTED. ASSISTED UP TO BEDSIDE COMMODE AND BACK TO BED. PT SOB WITH EXERTION. IV RIGHT FA SL. PT STATES PAIN 6/10 IN ABD. GAVE NORCO ORDERED CRUSHED IN PUDDING. DENIES OTHER NEEDS. CL IN REACH, WILL CTM
[2019-05-18] VITALS: BP 150/69
[2019-05-18 04:00] VITALS: BP 128/71
[2019-05-18 08:07] VITALS: BP 148/73
--- NOTE | 2019-05-18 08:26 | NUR ---
PT ALERT X 4. REFUSED MORNING MEDICATIONS. BREATH SOUNDS CLEAR BILAT, 3L O2 PER NC. IV TO RIGHT FOREARM, SALINE LOCKED. LAP SITES TO ABDOMEN, WOUND VAC PLACE TO LOWER ABDOMEN. PT REPORTING PAIN OF 8/10, PT NOT WANTING MEDICATION AT THIS TIME. BED LOW, CALL LIGHT IN REACH. NO OTHER NEEDS AT THIS TIME.
--- NOTE | 2019-05-18 12:00 | MORECARE ---
CASE MANAGEMENT DISCHARGE SUMMARY PATIENT: AMBREEN SCOTT UNIT: [id number] ADM DATE: 05/12/19 AGE: 73 : 46 SEX: F ROOM/BED: D.2203 AUTHOR: MIGUEL SALGUERO PHYSICIAN: REFERRING PHYSICIAN: YUE PERRIN MD DATE OF SERVICE: 05/18/19 Discharge Plan Patient Name: AMBREEN SCOTT Facility: [facility]:[place] : 1945 Planned Disposition: Home or Self Care Anticipated Discharge Date: Discharge Date: Expected LOS: Initial Reviewer: [id number] Initial Review Date: 05/12/2019 Generated: 05/18/19 1:00 pm DCP- Discharge Planning Updated by [email or web address]: Isabella Kate on 05/14/19 1:[address] Patient Name: AMBREEN SCOTT Admission Status: Elective Accout number: [id number] Admission Date: 05-12-2019 : 1945 Admission Diagnosis:MALIGNANT NEOPLASM OF COLON, UNSPECIFIED Attending: YUE PERRIN Current LOS: 2 Anticipated DC Date: Planned Disposition: Home or Self Care Primary Insurance: MEDICARE A & B Discharge Planning Comments: CM met with patient to complete initial dc planning assessment. CM educated patient on the CM role and verbal consent given by patient to complete assessment. Patient lives at home with her where she is independent with her care. At discharge patient plans to return home and feels this is a safe discharge. CM discussed availability of home health, rehab services, and medical equipment. She has home O2 and a nebulizer from [facility]. JAXON signed and placed in chart. At discharge her will be driving her home when she is discharged. Patient denied known discharge needs at this time. CM will continue to follow and will assist as needed with dc plans/needs. Miller Head: Isabella Kate DCP- Discharge Planning Updated by [email or web address]: Isabella Kate on 05/13/19 12:[address] I attempted to see patient she was sleeping with an NGT intact. No family at bedside. CM will attempt to see her at a later date DCPIA - Discharge Planning Initial Assessment Updated by [email or web address]: Isabella Kate on 05/14/19 2:32 pm * Is the patient Alert and Oriented? Yes * How many steps to enter\exit or inside your home? * PCP Mariano ([facility]) * Pharmacy [facility] [address] * Preadmission Environment Home with Family * ADLs Independent * Equipment Nebulizer Oxygen * List name and contact numbers for known caregivers / representatives who currently or will assist patient after discharge: DIANE SCOTT (SPOUSE) [phone] * Verbal permission to speak to the caregivers and representatives has been obtained from the patient. N/A * Community resources currently utilized None * Additional services required to return to the preadmission environment? No * Can the patient safely return to the preadmission environment? Yes * Has this patient been hospitalized within the prior 30 days at any hospital? No External Providers External Provider: [facility] [employer] Next Contact Date: Service Request Date: Service Type: Resolution: Reviewer: Comments: Coverage Notice Reviewer: [id number] Nadiya Kate Notice Issued Date-Time: 05/14/2019 14:30 Notice Type: Patient Choice Letter Notice Delivered To: Patient Relationship to Patient: Transit Coach Operator Name: Delivery Method: - Ronel Days: Prior Verbal Notification: Recipient Understood Notice: Yes Recipient Signature: Yes Med Rec Note Co-signed by Attending: Coverage Notice Comment: JAXON to keep [employer] Last DP export: 05/14/19 1:39 p Patient Name: AMBREEN SCOTT Page 77011 at 1200 All edits/amendments must be made on the electronic document DICTATION DATE: 05/18/19 1159 ALUMNI RELATIONS MANAGER: ROGELIO 05/18/19 1159 RPT#: [id number] DC DATE: STATUS: ADM IN [facility] [address] [place] [address] END OF REPORT
--- NOTE | 2019-05-18 12:40 | MORECARE ---
CASE MANAGEMENT DISCHARGE SUMMARY PATIENT: AMBREEN SCOTT UNIT: [id number] ADM DATE: 05/12/19 AGE: 73 : 46 SEX: F ROOM/BED: D.2203 AUTHOR: MIGUEL SALGUERO PHYSICIAN: REFERRING PHYSICIAN: YUE PERRIN MD DATE OF SERVICE: 05/18/19 Discharge Plan Patient Name: AMBREEN SCOTT Facility: [facility]:[place] : 1945 Planned Disposition: Home or Self Care Anticipated Discharge Date: Discharge Date: Expected LOS: Initial Reviewer: [email or web address] Initial Review Date: 05/12/2019 Generated: 05/18/19 1:40 pm DCP- Discharge Planning Updated by [email or web address]: Isabella Kate on 05/14/19 1:[address] Patient Name: AMBREEN SCOTT Admission Status: Elective Accout number: [id number] Admission Date: 05-12-2019 : 1945 Admission Diagnosis:MALIGNANT NEOPLASM OF COLON, UNSPECIFIED Attending: YUE PERRIN Current LOS: 2 Anticipated DC Date: Planned Disposition: Home or Self Care Primary Insurance: MEDICARE A & B Discharge Planning Comments: CM met with patient to complete initial dc planning assessment. CM educated patient on the CM role and verbal consent given by patient to complete assessment. Patient lives at home with her where she is independent with her care. At discharge patient plans to return home and feels this is a safe discharge. CM discussed availability of home health, rehab services, and medical equipment. She has home O2 and a nebulizer from [facility]. JAXON signed and placed in chart. At discharge her will be driving her home when she is discharged. Patient denied known discharge needs at this time. CM will continue to follow and will assist as needed with dc plans/needs. Nail Machine Operator: Isabella Kate DCP- Discharge Planning Updated by [email or web address]: Isabella Kate on 05/13/19 12:[address] I attempted to see patient she was sleeping with an NGT intact. No family at bedside. CM will attempt to see her at a later date DCPIA - Discharge Planning Initial Assessment Updated by [email or web address]: Isabella Ktae on 05/14/19 2:32 pm * Is the patient Alert and Oriented? Yes * How many steps to enter\exit or inside your home? * PCP Mariano ([facility]) * Pharmacy [facility] [address] * Preadmission Environment Home with Family * ADLs Independent * Equipment Nebulizer Oxygen * List name and contact numbers for known caregivers / representatives who currently or will assist patient after discharge: DIANE SCOTT (SPOUSE) [phone] * Verbal permission to speak to the caregivers and representatives has been obtained from the patient. N/A * Community resources currently utilized None * Additional services required to return to the preadmission environment? No * Can the patient safely return to the preadmission environment? Yes * Has this patient been hospitalized within the prior 30 days at any hospital? No External Providers External Provider: [facility] Next Contact Date: Service Request Date: Service Type: Resolution: Reviewer: Comments: Coverage Notice Reviewer: [id number] Nadiya Kate Notice Issued Date-Time: 05/14/2019 14:30 Notice Type: Patient Choice Letter Notice Delivered To: Patient Relationship to Patient: Information Technology Associate Name: Delivery Method: - Ronel Days: Prior Verbal Notification: Recipient Understood Notice: Yes Recipient Signature: Yes Med Rec Note Co-signed by Attending: Coverage Notice Comment: JAXON to keep [employer] Last DP export: 05/18/19 11:00 a Patient Name: AMBREEN SCOTT Page 94946 at 1240 All edits/amendments must be made on the electronic document DICTATION DATE: 05/18/19 1239 MANAGER CONTRACT: ROGELIO 05/18/19 1239 RPT#: [id number] DC DATE: STATUS: ADM IN [facility] [address] [place] [address] END OF REPORT
--- NOTE | 2019-05-18 12:46 | MORECARE ---
CASE MANAGEMENT DISCHARGE SUMMARY PATIENT: AMBREEN SCOTT UNIT: [id number] ADM DATE: 05/12/19 AGE: 73 : 46 SEX: F ROOM/BED: D.2203 AUTHOR: MIGUEL SALGUERO PHYSICIAN: REFERRING PHYSICIAN: YUE PERRIN MD DATE OF SERVICE: 05/18/19 Discharge Plan Patient Name: AMBREEN SCOTT Facility: [facility]:[place] : 1945 Planned Disposition: Home or Self Care Anticipated Discharge Date: Discharge Date: Expected LOS: Initial Reviewer: [id number] Initial Review Date: 05/12/2019 Generated: 05/18/19 1:46 pm DCP- Discharge Planning Updated by [email or web address]: Isablela Kate on 05/14/19 1:[address] Patient Name: AMBREEN SCOTT Admission Status: Elective Accout number: [id number] Admission Date: 05-12-2019 : 1945 Admission Diagnosis:MALIGNANT NEOPLASM OF COLON, UNSPECIFIED Attending: YUE PERRIN Current LOS: 2 Anticipated DC Date: Planned Disposition: Home or Self Care Primary Insurance: MEDICARE A & B Discharge Planning Comments: CM met with patient to complete initial dc planning assessment. CM educated patient on the CM role and verbal consent given by patient to complete assessment. Patient lives at home with her where she is independent with her care. At discharge patient plans to return home and feels this is a safe discharge. CM discussed availability of home health, rehab services, and medical equipment. She has home O2 and a nebulizer from [facility]. JAXON signed and placed in chart. At discharge her will be driving her home when she is discharged. Patient denied known discharge needs at this time. CM will continue to follow and will assist as needed with dc plans/needs. Piano Accompanist: Isabella Kate DCP- Discharge Planning Updated by [id number]: Isabella Kate on 05/13/19 12:[address] I attempted to see patient she was sleeping with an NGT intact. No family at bedside. CM will attempt to see her at a later date DCPIA - Discharge Planning Initial Assessment Updated by [email or web address]: Isabella Kate on 05/14/19 2:32 pm * Is the patient Alert and Oriented? Yes * How many steps to enter\exit or inside your home? * PCP Mariano ([facility]) * Pharmacy [facility] [address] * Preadmission Environment Home with Family * ADLs Independent * Equipment Nebulizer Oxygen * List name and contact numbers for known caregivers / representatives who currently or will assist patient after discharge: DIANE SCOTT (SPOUSE) [phone] * Verbal permission to speak to the caregivers and representatives has been obtained from the patient. N/A * Community resources currently utilized None * Additional services required to return to the preadmission environment? No * Can the patient safely return to the preadmission environment? Yes * Has this patient been hospitalized within the prior 30 days at any hospital? No External Providers External Provider: [facility] Next Contact Date: Service Request Date: Service Type: Resolution: Reviewer: Comments: Coverage Notice Reviewer: [id number] Nadiya Kate Notice Issued Date-Time: 05/14/2019 14:30 Notice Type: Patient Choice Letter Notice Delivered To: Patient Relationship to Patient: Route Returner Name: Delivery Method: - Ronel Days: Prior Verbal Notification: Recipient Understood Notice: Yes Recipient Signature: Yes Med Rec Note Co-signed by Attending: Coverage Notice Comment: JAXON to keep [employer] Last DP export: 05/18/19 11:40 a Patient Name: AMBREEN SCOTT Page 22008 at 1246 All edits/amendments must be made on the electronic document DICTATION DATE: 05/18/19 1246 COMMERCIAL DRAFTER: ROGELIO 05/18/19 1246 RPT#: [id number] DC DATE: STATUS: ADM IN [facility] [address] [place] [address] END OF REPORT
--- NOTE | 2019-05-18 12:55 | MORECARE ---
CASE MANAGEMENT DISCHARGE SUMMARY PATIENT: AMBREEN SCOTT UNIT: [id number] ADM DATE: 05/12/19 AGE: 73 : 46 SEX: F ROOM/BED: D.2203 AUTHOR: JOSE MDOC PHYSICIAN: REFERRING PHYSICIAN: YUE PERRIN MD DATE OF SERVICE: 05/18/19 Discharge Plan Patient Name: AMBREEN SCOTT Facility: [facility]:[place] : 1945 Planned Disposition: Home or Self Care Anticipated Discharge Date: Discharge Date: Expected LOS: Initial Reviewer: [email or web address] Initial Review Date: 05/12/2019 Generated: 05/18/19 1:55 pm Comments DCP- Discharge Planning Updated by [email or web address]: Kari Robledo on 05/18/19 11:[address] CM met with patient to discuss discharge planning. She would like a BSC and a walker ordered. I called Caden with [facility] and order and clinical faxed. JAXON for [employer] and [facility] signed. I spoke with Betty and [facility] and clinical faxed. CM will continue to follow and assist with discharge planning/needs. DCP- Discharge Planning Updated by [email or web address]: Isabella Kate on 05/14/19 1:[address] Patient Name: AMBREEN SCOTT Admission Status: Elective Accout number: [id number] Admission Date: 05-12-2019 : 1945 Admission Diagnosis:MALIGNANT NEOPLASM OF COLON, UNSPECIFIED Attending: YUE PERRIN Current LOS: 2 Anticipated DC Date: Planned Disposition: Home or Self Care Primary Insurance: MEDICARE A & B Discharge Planning Comments: CM met with patient to complete initial dc planning assessment. CM educated patient on the CM role and verbal consent given by patient to complete assessment. Patient lives at home with her where she is independent with her care. At discharge patient plans to return home and feels this is a safe discharge. CM discussed availability of home health, rehab services, and medical equipment. She has home O2 and a nebulizer from [facility]. JAXON signed and placed in chart. At discharge her will be driving her home when she is discharged. Patient denied known discharge needs at this time. CM will continue to follow and will assist as needed with dc plans/needs. Employment Specialist: Isabella Garciaken DCP- Discharge Planning Updated by [id number]: Isabella Garciaken on 05/13/19 12:[address] I attempted to see patient she was sleeping with an NGT intact. No family at bedside. CM will attempt to see her at a later date DCPIA - Discharge Planning Initial Assessment Updated by [email or web address]: Isabella Humble on 05/14/19 2:32 pm * Is the patient Alert and Oriented? Yes * How many steps to enter\exit or inside your home? * PCP Mariano ([facility]) * Pharmacy [facility] [address] * Preadmission Environment Home with Family * ADLs Independent * Equipment Nebulizer Oxygen * List name and contact numbers for known caregivers / representatives who currently or will assist patient after discharge: DIANE SCOTT (SPOUSE) [phone] * Verbal permission to speak to the caregivers and representatives has been obtained from the patient. N/A * Community resources currently utilized None * Additional services required to return to the preadmission environment? No * Can the patient safely return to the preadmission environment? Yes * Has this patient been hospitalized within the prior 30 days at any hospital? No Coverage Notice Reviewer: [email or web address] Nadiya Robledo Notice Issued Date-Time: 05/18/2019 12:48 Notice Type: Patient Choice Letter Notice Delivered To: Patient Relationship to Patient: Self Pediatric Oncologist Name: Delivery Method: HAND - Hand Delivered Ronel Days: Prior Verbal Notification: Recipient Understood Notice: Yes Recipient Signature: Yes Med Rec Note Co-signed by Attending: Coverage Notice Comment: JAXON for [facility] and [facility] Last DP export: 05/18/19 11:46 a Patient Name: AMBREEN SCOTT Page 20457 at 1255 All edits/amendments must be made on the electronic document DICTATION DATE: 05/18/19 1254 ASSET PROTECTION MANAGER: ROGELIO 05/18/19 1253 RPT#: [id number] DC DATE: STATUS: ADM IN [facility] [address] [place] [address] END OF REPORT
[2019-05-18 13:21] VITALS: BP 168/72
[2019-05-18] MEDS ORDERED: HYDROCODON-ACE1 EA10 PO (13:24)
--- NOTE | 2019-05-18 13:52 | MORECARE ---
CASE MANAGEMENT DISCHARGE SUMMARY PATIENT: AMBREEN SCOTT UNIT: [id number] ADM DATE: 05/12/19 AGE: 73 : 47 SEX: F ROOM/BED: D.2203 AUTHOR: MIGUEL SALGUERO PHYSICIAN: REFERRING PHYSICIAN: YUE PERRIN MD DATE OF SERVICE: 05/18/19 Discharge Plan Patient Name: AMBREEN SCOTT Facility: [facility]:[place] : 1945 Planned Disposition: Home or Self Care Anticipated Discharge Date: Discharge Date: Expected LOS: Initial Reviewer: [id number] Initial Review Date: 05/12/2019 Generated: 05/18/19 2:51 pm Comments DCP- Discharge Planning Updated by [email or web address]: Kari Robledo on 05/18/19 12:[address] Patient Name: AMBREEN SCOTT Admission Status: Elective Accout number: [id number] Admission Date: 05-12-2019 : 1945 Admission Diagnosis:MALIGNANT NEOPLASM OF COLON, UNSPECIFIED Attending: YUE PERRIN Current LOS: 6 Anticipated DC Date: Planned Disposition: Home or Self Care Primary Insurance: MEDICARE A & B Discharge Planning Comments: Spoke with Brittany at [facility] and they will see the patient tomorrow. I spoke with Iesha at [facility] and they are going to deliver her BSC and walker to her house per patient request (she spoke with her on the phone). I have notified Shaun to cancel the order for her home wound vac per Dr. Perrin's instructions. She is going to have wet to dry dressings. Home today with [facility]. Alumni Relations Manager: Kari Robledo DCP- Discharge Planning Updated by [email or web address]: Kari Robledo on 05/18/19 11:[address] CM met with patient to discuss discharge planning. She would like a BSC and a walker ordered. I called Caden with [facility] and order and clinical faxed. JAXON for [facility] and [facility] signed. I spoke with Betty and [place] and clinical faxed. CM will continue to follow and assist with discharge planning/needs. DCP- Discharge Planning Updated by [id number]: Isabella Kate on 05/14/19 1:[address] Patient Name: AMBREEN SCOTT Admission Status: Elective Accout number: [id number] Admission Date: 05-12-2019 : 1945 Admission Diagnosis:MALIGNANT NEOPLASM OF COLON, UNSPECIFIED Attending: YUE PERRIN Current LOS: 2 Anticipated DC Date: Planned Disposition: Home or Self Care Primary Insurance: MEDICARE A & B Discharge Planning Comments: CM met with patient to complete initial dc planning assessment. CM educated patient on the CM role and verbal consent given by patient to complete assessment. Patient lives at home with her where she is independent with her care. At discharge patient plans to return home and feels this is a safe discharge. CM discussed availability of home health, rehab services, and medical equipment. She has home O2 and a nebulizer from [facility]. JAXON signed and placed in chart. At discharge her will be driving her home when she is discharged. Patient denied known discharge needs at this time. CM will continue to follow and will assist as needed with dc plans/needs. Alumni Relations Manager: Isabella Kate DCP- Discharge Planning Updated by [id number]: Isabella Kate on 05/13/19 12:[address] I attempted to see patient she was sleeping with an NGT intact. No family at bedside. CM will attempt to see her at a later date DCPIA - Discharge Planning Initial Assessment Updated by [email or web address]: Isabella Kate on 05/14/19 2:32 pm * Is the patient Alert and Oriented? Yes * How many steps to enter\exit or inside your home? * PCP Mariano ([facility]) * Pharmacy [facility] [address] * Preadmission Environment Home with Family * ADLs Independent * Equipment Nebulizer Oxygen * List name and contact numbers for known caregivers / representatives who currently or will assist patient after discharge: DIANE SCOTT (SPOUSE) [phone] * Verbal permission to speak to the caregivers and representatives has been obtained from the patient. N/A * Community resources currently utilized None * Additional services required to return to the preadmission environment? No * Can the patient safely return to the preadmission environment? Yes * Has this patient been hospitalized within the prior 30 days at any hospital? No Coverage Notice Reviewer: [id number] Nadiya Robledo Notice Issued Date-Time: 05/18/2019 12:48 Notice Type: Patient Choice Letter Notice Delivered To: Patient Relationship to Patient: Self Educational Technology Specialist Name: Delivery Method: HAND - Hand Delivered Ronel Days: Prior Verbal Notification: Recipient Understood Notice: Yes Recipient Signature: Yes Med Rec Note Co-signed by Attending: Coverage Notice Comment: JAXON Remy Reviewer: [id number] Nadiya Robledo Notice Issued Date-Time: 05/18/2019 13:49 Notice Type: IM Discharge Notice Notice Delivered To: Patient Relationship to Patient: Self Educational Technology Specialist Name: Delivery Method: HAND - Hand Delivered Ronel Days: Prior Verbal Notification: Recipient Understood Notice: Yes Recipient Signature: Yes Med Rec Note Co-signed by Attending: Coverage Notice Comment: IMM explained, signed, given, copy placed in MR Last DP export: 05/18/19 11:55 a Patient Name: AMBREEN SCOTT Page 71493 at 1352 All edits/amendments must be made on the electronic document DICTATION DATE: 05/18/19 1351 INVENTORY ADMINISTRATOR: ROGELIO 05/18/19 1351 RPT#: [id number] DC DATE: STATUS: ADM IN [facility] [address] [place] [address] END OF REPORT
--- NOTE | 2019-05-18 15:02 | NUR ---
DISCHARGE PAPERWORK SIGNED, ALL QUESTIONS ANSWERED. WOUND VAC TO LOWER ABDOMEN DC'D, WET TO DRY DRESSING APPLIED. IV TO RIGHT FOREARM DC'D, TIP INTACT. ESCORTED OUT BY WHEELCHAIR.
--- NOTE | 2019-05-19 16:43 | MORECARE ---
CASE MANAGEMENT DISCHARGE SUMMARY PATIENT: AMBREEN SCOTT UNIT: [id number] ADM DATE: 05/12/19 AGE: 73 : 47 SEX: F ROOM/BED: D.2203 AUTHOR: MIGUEL SALGUERO PHYSICIAN: REFERRING PHYSICIAN: YUE PERRIN MD DATE OF SERVICE: 05/19/19 Discharge Plan Patient Name: AMBREEN SCOTT Facility: [facility]:[place] : 1945 Planned Disposition: Home or Self Care Anticipated Discharge Date: Discharge Date: 05/18/2019 Expected LOS: 0 Initial Reviewer: [id number] Initial Review Date: 05/12/2019 Generated: 05/19/19 5:43 pm Comments DCP- Discharge Planning Updated by [id number]: Kari Robledo on 05/18/19 12:[address] Patient Name: AMBREEN SCOTT Admission Status: Elective Accout number: [id number] Admission Date: 05-12-2019 : 1945 Admission Diagnosis:MALIGNANT NEOPLASM OF COLON, UNSPECIFIED Attending: YUE PERRIN Current LOS: 6 Anticipated DC Date: Planned Disposition: Home or Self Care Primary Insurance: MEDICARE A & B Discharge Planning Comments: Spoke with Brittany at [facility] and they will see the patient tomorrow. I spoke with Iesha at [facility] and they are going to deliver her BSC and walker to her house per patient request (she spoke with her on the phone). I have notified Shaun to cancel the order for her home wound vac per Dr. Perrin's instructions. She is going to have wet to dry dressings. Home today with [facility]. Senior Devops Engineer: Kari Robledo DCP- Discharge Planning Updated by [id number]: Kari Robledo on 05/18/19 11:[address] CM met with patient to discuss discharge planning. She would like a BSC and a walker ordered. I called Caden with [facility] and order and clinical faxed. JAXON for [facility] and [facility] signed. I spoke with [facility] and clinical faxed. CM will continue to follow and assist with discharge planning/needs. DCP- Discharge Planning Updated by [id number]: Isabella Kate on 05/14/19 1:[address] Patient Name: AMBREEN SCOTT Admission Status: Elective Accout number: [id number] Admission Date: 05-12-2019 : 1945 Admission Diagnosis:MALIGNANT NEOPLASM OF COLON, UNSPECIFIED Attending: YUE PERRIN Current LOS: 2 Anticipated DC Date: Planned Disposition: Home or Self Care Primary Insurance: MEDICARE A & B Discharge Planning Comments: CM met with patient to complete initial dc planning assessment. CM educated patient on the CM role and verbal consent given by patient to complete assessment. Patient lives at home with her where she is independent with her care. At discharge patient plans to return home and feels this is a safe discharge. CM discussed availability of home health, rehab services, and medical equipment. She has home O2 and a nebulizer from [facility]. JAXON signed and placed in chart. At discharge her will be driving her home when she is discharged. Patient denied known discharge needs at this time. CM will continue to follow and will assist as needed with dc plans/needs. Senior Devops Engineer: Isabella Kate DCP- Discharge Planning Updated by [id number]: Isabella Garciaken on 05/13/19 12:[address] I attempted to see patient she was sleeping with an NGT intact. No family at bedside. CM will attempt to see her at a later date DCPIA - Discharge Planning Initial Assessment Updated by [id number]: Isabella Humble on 05/14/19 2:32 pm * Is the patient Alert and Oriented? Yes * How many steps to enter\exit or inside your home? * PCP Mariano ([facility]) * Pharmacy [facility] [address] * Preadmission Environment Home with Family * ADLs Independent * Equipment Nebulizer Oxygen * List name and contact numbers for known caregivers / representatives who currently or will assist patient after discharge: DIANE SCOTT (SPOUSE) [phone] * Verbal permission to speak to the caregivers and representatives has been obtained from the patient. N/A * Community resources currently utilized None * Additional services required to return to the preadmission environment? No * Can the patient safely return to the preadmission environment? Yes * Has this patient been hospitalized within the prior 30 days at any hospital? No Coverage Notice Reviewer: [id number] Nadiya Robledo Notice Issued Date-Time: 05/18/2019 12:48 Notice Type: Patient Choice Letter Notice Delivered To: Patient Relationship to Patient: Self Template Cutter Name: Delivery Method: HAND - Hand Delivered Ronel Days: Prior Verbal Notification: Recipient Understood Notice: Yes Recipient Signature: Yes Med Rec Note Co-signed by Attending: Coverage Notice Comment: JAXON Remy Reviewer: [id number] Nadiya Robledo Notice Issued Date-Time: 05/18/2019 13:49 Notice Type: IM Discharge Notice Notice Delivered To: Patient Relationship to Patient: Self Template Cutter Name: Delivery Method: HAND - Hand Delivered Ronel Days: Prior Verbal Notification: Recipient Understood Notice: Yes Recipient Signature: Yes Med Rec Note Co-signed by Attending: Coverage Notice Comment: IMM explained, signed, given, copy placed in MR Last DP export: 05/18/19 12:52 p Patient Name: AMBREEN SCOTT Page 50815 at 1643 All edits/amendments must be made on the electronic document DICTATION DATE: 05/19/191642 TESTING COORDINATOR: ROGELIO 05/19/191642 RPT#: [id number] DC DATE:05/18/19 STATUS: DIS IN [facility] [address] [place] [address] END OF REPORT
== END 2019-05-18 15:04 | disposition home health service (06) | DRG 330 ==
LOC: D.SDCHOLD 05-12 07:55 → D.MS 05-12 07:55 → D.SDCHOLD 05-12 09:15 → D.MS 05-12 15:57
PROVIDERS: Anesthesiology; ADMIT Surgery; ATTEND Surgery
PROC: 0DTL0ZZ Resection of Transverse Colon, Open Approach (ICD-10-PCS; principal; 2019-05-12 09:45)
DX: C18.9 Malignant neoplasm of colon, unspecified (principal); D62 Acute posthemorrhagic anemia; J44.9 Chronic obstructive pulmonary disease, unspecified; E87.5 Hyperkalemia; Z15.09 Genetic susceptibility to other malignant neoplasm

== ENCOUNTER 2019-05-26 02:35 | Inpatient (IN) | payer MEDICARE ==
[~2019-05-26] VITALS: Ht 165.1 cm; Wt 54.4 kg
[~2019-05-26 02:35] MED LIST changes: +HYDROCODON-ACE1 EA10 PO
[2019-05-26 03:30] VITALS: BP 107/50
--- NOTE | 2019-05-26 03:46 | NUR ---
PT RESTING ON BED, EYES CLOSED. NO S/S OF ACUTE DISTRESS NOTED.
[2019-05-26 05:25] VITALS: BP 100/49
[2019-05-26 07:12] LABS: ALT (SGPT) 9 U/L (10-68); BILIRUBIN - TOTAL 0.34 mg/dL (0.2-1.3); CALCIUM 7.4 mg/dL (8.5-10.1); CARBON DIOXIDE 30.5 mmol/L (21.0-32.0); CREATININE - SERUM 0.7 mg/dL (0.6-1.3); GLUCOSE 91 mg/dL (74-106); UREA NITROGEN 4 mg/dL (7-18); eGFR NON AFRICAN AMERICAN 87 mL/min (90-120)
--- NOTE | 2019-05-26 07:19 | NUR ---
PT IS RESTING IN BED WITH EYES OPEN. RESPIRATIONS ARE EVEN AND UNLABORED. PT IS TEARFUL WITH CONCERNS RELATED TO PLAN OF CARE. PT EDUCATED ON PLAN OF CARE AT THIS TIME. PT SHOWS SOME RELIEF. PT REPORTS MULTIPLE BM THIS AM DESCRIBED DIARRHEA. ABDOMINAL DRESSING IS C/D/I WITH 1 STAPLE NOTED TO MID EPIGASTRIC AREA AND 1 STAPLE TO RUQ. MEPILEX DRESSING TO BUTTOCK/COCCYX IS C/D/I. PT DENIES PRESENCE OF PAIN/N/V AT THIS TIME. BED IS IN THE LOWEST POSITION. CALL LIGHT AND BEDSIDE TABLE ARE WITHIN REACH. SIDE RAILS X 2. WILL CONT TO MONITOR.
[2019-05-26 07:36] LABS: ALKALINE PHOSPHATASE 70 U/L (46-116)
[2019-05-26 07:51] LABS: HEMATOCRIT 27.2 % (36.0-48.0); HEMOGLOBIN 8.6 g/dL (12-16); MCH 32.7 pg (26.0-34.0); MCHC 31.6 g/dL (31.0-37.0); MCV 103.4 fL (80.0-100.0); MEAN PLATELET VOLUME 9.6 fL (7.4-10.4); PLATELET COUNT 501 10x3/uL (130-400); RBC 2.63 10x6/uL (4.00-5.40); RDW 19.4 % (11.5-14.5); WBC 28.4 10x3/uL (4.8-10.8)
[2019-05-26 08:03] LABS: CALC OSMOLALITY 279 mosm/kg (275-300); CHLORIDE - SERUM 106 mmol/L (98-107); POTASSIUM - SERUM 3.1 mmol/L (3.5-5.1); SODIUM 142 mmol/L (136-145)
[2019-05-26 08:24] LABS: ANISOCYTOSIS OCC; EOSINOPHILS 1 % (0-7); HYPOCHROMASIA OCC; LYMPHOCYTES 15 % (15-50); MONOCYTES 5 % (2-11); NEUTROPHILS 73 % (40-80); PLATELET ESTIMATE INCREASED; POLYCHROMASIA OCC
--- NOTE | 2019-05-26 08:41 | NUR ---
RING STRIKER LOAN ATTEMPTS TO OBTAIN MORNING VITALS. PT IS REFUSING RING STRIKER TO OBTAIN AT THIS TIME, PT STATES "DO ALL OF YALL GO TO SCHOOL TO LEARN HOW TO BE MEAN TO PEOPLE" PT ASSURED OF NO ATTEMPT FROM STAFF TO CAUSE HARM OR "BE MEAN". PT ALLOWS THIS NURSE TO OBTAIN BLOOD PRESSURE AND O2 SAT. PT STATES "MY TONGUE IS SO SORE AND I AM JUST SORE IN PLACES THAT YOU DONT EVEN KNOW". PT ASKED IF ANY MEDICATION WAS DESIRED FOR PAIN RELIEF. PT DENIES. PT DENIES FURTHER NEEDS AT THIS TIME. BED IS IS THE LOWEST POSITION. CALL LIGHT AND BEDSIDE TABLE ARE WITHIN REACH. SIDE RAILS X 2. WILL CONT TO MONITOR.
[2019-05-26 08:56] VITALS: BP 118/55
--- NOTE | 2019-05-26 08:58 | NUR ---
PT EDUCATED ON NEW ORDER FOR NG TUBE PLACEMENT. PT VERBALIZES UNDERSTANDING OF NG TUBE PLACEMENT BUT REFUSES AT THIS TIME. PT STATES "I HAVE HAD ONE BEFORE AND I GOT A SORE ON MY NOSE. I AM NOT GETTING ANOTHER ONE UNTIL I TALK TO THE DR".
--- NOTE | 2019-05-26 10:11 | NUR ---
VASCULAR ACCESS NURSE NILS NOTIFIED OF CONSULT.
[2019-05-26 10:42] LABS: INR 1.34 (0.85-1.17)
[2019-05-26 11:02] LABS: MAGNESIUM - SERUM 1.8 mg/dL (1.8-2.4); PHOSPHOROUS 2.9 mg/dL (2.5-4.9)
[2019-05-26 12:03] VITALS: BP 118/52
[2019-05-26 12:14] VITALS: Ht 165.1 cm; Wt 54.4 kg
--- NOTE | 2019-05-26 12:26 | NUR ---
PT IS AGREEABLE TO ALLOW ABX INFUSION THROUGH PIV. SEE EMAR. PT CONTINUES TO REFUSE NG TUBE AND PICC PLACEMENT AT THIS TIME.
--- NOTE | 2019-05-26 14:28 | NUR ---
PIV TO RIGHT WRISTE REMOVED WITH CATHETER TIP INTACT. PIV TO RIGHT FOREARM REMOVED WITH CATHETER TIP INTACT. DRESSING APPLIED TO BOTH IV SITES. PT DENIES FURTHER NEEDS. AT THIS TIME. FAMILY IS AT BEDSIDE. WILL CONT TO MONITOR.
--- NOTE | 2019-05-26 15:54 | NUR ---
PT ABDOMINAL DRESSING CHANGED PER PT REQUEST. DRESSING TO ABDOMEN IS C/D/I.
[2019-05-26 16:36] VITALS: BP 118/51
--- NOTE | 2019-05-26 18:04 | NUR ---
PT DAUGHTER AISLINN CALLED REQUESTING INFORMATION ON PT. AISLINN HAD CORRECT PASSWORD ON CHART. ALL QUESTIONS ANSWERED. PT DAUGHTER STATES THAT SHE WOULD LIKE A PHONE CALL "DIRECT COMMUNICATION" WITH THE DR. TAO PHONE NUMBER IS [phone].
[2019-05-26 19:48] LABS: APPEARANCE CLEAR (CLEAR); BILIRUBIN NEGATIVE (NEGATIVE); COLOR YELLOW (YELLOW); GLUCOSE NEGATIVE (NEGATIVE); KETONE NEGATIVE (NEGATIVE); NITRITE NEGATIVE (NEGATIVE); PROTEIN NEGATIVE (NEGATIVE); UROBILINOGEN NORMAL (NORMAL)
--- NOTE | 2019-05-26 20:00 | NUR ---
RECEIVED PT. A&O X4. RR EVEN AND UNLABORED. DENIES NEEDS AT THIS TIME. NO S/S OF DISTRESS NOTED. WILL CPOC.
[2019-05-26 22:12] VITALS: BP 130/60
[2019-05-27 01:00] VITALS: BP 126/72
--- NOTE | 2019-05-27 03:20 | NUR ---
PT HAS BEEN RESTING QUIETLY. VOICES NO C/O OR CONCERNS. NO NEEDS EXPRESSED. NO S/S OF DISTRESS NOTED. WILL CPOC.
[2019-05-27 06:31] LABS: BASOPHILS 0.1 % (0-2); EOSINOPHILS 2.3 % (0-7); HEMATOCRIT 24.8 % (36.0-48.0); HEMOGLOBIN 7.8 g/dL (12-16); IMMATURE GRANULOCYTES 0.5 % (0-5); LYMPHOCYTES 7.1 % (15-50); MCH 32.4 pg (26.0-34.0); MCHC 31.5 g/dL (31.0-37.0); MCV 102.9 fL (80.0-100.0); MEAN PLATELET VOLUME 9.5 fL (7.4-10.4); MONOCYTES 7.2 % (2-11); NEUTROPHILS 82.8 % (40-80); PLATELET COUNT 455 10x3/uL (130-400); RBC 2.41 10x6/uL (4.00-5.40); RDW 18.7 % (11.5-14.5)
[2019-05-27 06:35] VITALS: BP 150/55
[2019-05-27 06:54] LABS: WBC 16.7 10x3/uL (4.8-10.8)
[2019-05-27 07:04] LABS: CARBON DIOXIDE 32.8 mmol/L (21.0-32.0); CHLORIDE - SERUM 107 mmol/L (98-107); CREATININE - SERUM 0.6 mg/dL (0.6-1.3); MAGNESIUM - SERUM 2.1 mg/dL (1.8-2.4); SODIUM 143 mmol/L (136-145); eGFR NON AFRICAN AMERICAN > 90 mL/min (90-120)
[2019-05-27 07:11] LABS: CALC OSMOLALITY 284 mosm/kg (275-300); GLUCOSE 137 mg/dL (74-106); PHOSPHOROUS 2.1 mg/dL (2.5-4.9); UREA NITROGEN 6 mg/dL (7-18)
[2019-05-27 07:12] LABS: POTASSIUM - SERUM 2.7 mmol/L (3.5-5.1)
--- NOTE | 2019-05-27 07:12 | NUR ---
NOTIFIED OF CRITICAL K+ (SEE LAB REPORT) BY TED FROM LAB. DR MOORE PAGED AT THIS TIME.
--- NOTE | 2019-05-27 07:27 | NUR ---
DR MOORE NOTIFIED OF CRITICAL K+ LEVEL.
[2019-05-27 09:11] VITALS: BP 92/60
--- NOTE | 2019-05-27 10:05 | NUR ---
CONSENT FOR BLOOD SIGNED BY PT. PT DENIES FURTHER QUESTIONS/CONCERNS AT THIS TIME. SIGNED CONSENT PLACED IN PT CHART.
--- NOTE | 2019-05-27 10:24 | NUR ---
PT IS RESTING IN BED WITH EYES CLOSED. RESPIRATIONS ARE EVEN AND UNLABORED. PT IS EASILY AROUSED WITH VERBAL STIMULATION. PT IS AAO X 4. PT REPORTS PAIN THAT IS CHRONIC IN NATURE TO BACK. PT DENIES NEEDS FOR PAIN MEDICATION AT THIS TIME. PT REPORTS THAT SHE IS ABLE TO REPOSITION SELF IN BED. PT EDUCATED ON IMPORTANCE OF FREQUENT POSITION CHANGE. PT WITH 3 PRESSURE SORES TO BUTTOCK. MEPILEX DRESSING IS IN PLACE AND C/D/I. PT VERBALIZES UNDERSTANDING. PT WITH RIGHT UPPER ARM PICC LINE INFUSING WITHOUT DIFFICULTY. PT DENIES PRESENCE OF N/V. BED IS IN THE LOWEST POSITION. CALL LIGHT AND BEDSIDE TABLE ARE WITHIN REACH. SIDE RAILS X 2. BEDSIDE COMMODE IS WHERE PT WANTS IT. PT DENIES FURTHER NEEDS. WILL CONT TO MONITOR.
--- NOTE | 2019-05-27 11:27 | NUR ---
Rehab Prescreening Consult recieved and the chart has been reviewed. This patient is a new admit. She is NPO and currently on TPN, she also has a PT eval pending. Rehab will follow her and see what her plan of care is going to be as well as her functional needs. Discussed with the CM Kari Robledo RN. Heather Kim RN Clinical Liaison, Rehab
--- NOTE | 2019-05-27 11:42 | NUR ---
UNIT 1 OF PRBC TRANSFUSION INITIATED. VSS. SEE TRANSFUSION CARD. PRBC VERIFIRED WITH CHAI ZIMMERMAN RN. PRBC TRANSFUSING TO RIGHT UPPER ARM PICC LINE WITHOUT DIFFICULTY. WILL STAY IN ROOM TO CLOSELY MONITOR FOR FIRST 15 MINUTES OF TRANSFUSION. PT WITHOUT OBVIOUS S/S OF DISTRESS AT THIS TIME.
--- NOTE | 2019-05-27 11:54 | NUR ---
PT VSS. SEE TRANFUSION CARD. PT WITHOUT S/S DISTRESS. PT DENIES FURTHER NEEDS. WILL CONT TO CLOSELY MONITOR.
[2019-05-27 12:25] VITALS: BP 116/63
--- NOTE | 2019-05-27 12:30 | NUR ---
Nutrition follow-up: PICC line place; TPN infusing @ 40 ml/hr Intralipids 20% 250 ml Q 72 hours labs reviewed; K low; replaced Pt placed on daily electrolyte protocol. Will continue current TPN order. If K remains low will adjust formula RDN following.
--- NOTE | 2019-05-27 12:51 | NUR ---
PT IS RESTING QUIETLY WITH EYES CLOSED. RESPIRATIONS ARE EVEN AND UNLABORED. VSS. SEE FLOWSHEET.
--- NOTE | 2019-05-27 13:57 | NUR ---
UNIT 1 OF PRBC TRANSFUSION COMPLETE. VSS. PT WITHOUT DISTRESS. PT DENIES FURTHER NEEDS.
--- NOTE | 2019-05-27 14:14 | NUR ---
UNIT #2 OF PRBC TRANSFUSION INITIATED. VSS. SEE TRANSFUSION CARD. PT WITHOUT OBVIOUS DISTRESS AT THIS TIME. WILL STAY IN ROOM TO MONITOR PT CLOSELY.
--- NOTE | 2019-05-27 16:40 | NUR ---
PATIENT BLOOD FINISHED AT THIS TIME. VS STABLE. IV INTACT. CALL LIGHT WITHIN REACH.
--- NOTE | 2019-05-27 17:02 | NUR ---
REPORT GIVEN TO ALBERT SHELTON RN.
--- NOTE | 2019-05-27 18:57 | NUR ---
REDREW POTASSIUM BC POTASSIUM WAS LOWER THAN IT WAS THIS MORNING BEFORE SHE HAD 2 BAGS OF K+. IV INTACT. NO COMPLAINTS. CALL LIGHT WITHIN REACH.
[2019-05-27 22:05] VITALS: BP 159/83
--- NOTE | 2019-05-27 22:26 | NUR ---
RESTING QUIELTY WITHOUT COMPLAITNS VOICED. PICC LINE INTACT TO GAYLE ABURTO REDNESS OR EDEMA NOTED. DRESSING INTACT TO MIDABD.NO DRAINAGE NOTED..CLIPS INTACT TO LAP SITES. RESP UNLABORED. CL IN REACH
[2019-05-28 01:22] VITALS: BP 142/62
--- NOTE | 2019-05-28 03:31 | NUR ---
I have reviewed this patient and I concur with the Shift Assessment completed by the Licensed Practical Nurse today this shift.
[2019-05-28 05:49] VITALS: BP 150/73
[2019-05-28 06:00] LABS: BASOPHILS 0.2 % (0-2); EOSINOPHILS 4.2 % (0-7); IMMATURE GRANULOCYTES 0.5 % (0-5); MCHC 32.9 g/dL (31.0-37.0); MEAN PLATELET VOLUME 9.5 fL (7.4-10.4); MONOCYTES 7.6 % (2-11); NEUTROPHILS 78.5 % (40-80); PLATELET COUNT 426 10x3/uL (130-400); RDW 19.6 % (11.5-14.5)
[2019-05-28 06:26] LABS: HEMATOCRIT 32.2 % (36.0-48.0); HEMOGLOBIN 10.6 g/dL (12-16); MCV 97.3 fL (80.0-100.0); RBC 3.31 10x6/uL (4.00-5.40); WBC 12.2 10x3/uL (4.8-10.8)
[2019-05-28 06:40] LABS: CALC OSMOLALITY 279 mosm/kg (275-300); CALCIUM 8.2 mg/dL (8.5-10.1); CARBON DIOXIDE 32.8 mmol/L (21.0-32.0); CHLORIDE - SERUM 106 mmol/L (98-107); CREATININE - SERUM 0.6 mg/dL (0.6-1.3); GLUCOSE 123 mg/dL (74-106); MAGNESIUM - SERUM 2.2 mg/dL (1.8-2.4); SODIUM 141 mmol/L (136-145); UREA NITROGEN 6 mg/dL (7-18); eGFR NON AFRICAN AMERICAN > 90 mL/min (90-120)
[2019-05-28 06:43] LABS: POTASSIUM - SERUM 3.1 mmol/L (3.5-5.1)
--- NOTE | 2019-05-28 08:47 | NUR ---
Nutrition follow-up: Pt NPO with ice chips, sips water only TPN infusing @ 40 ml/hr with 20% 250 ml intralipids Q 72 hours Labs reviewed; K, PO4 continue low TPN formula adjusted RDN following.
[2019-05-28 08:59] VITALS: BP 162/79
[2019-05-28 13:25] VITALS: BP 163/77
--- NOTE | 2019-05-28 17:00 | NUR ---
WENT TO FLUSH PICC AND GIVE MORPHINE AT THIS TIME. PICC LINE CLOTTED. NOTICED PUMP WITH IV FLUIDS HAD BEEN TURNED OFF. PATIENT STATED THAT SHE DIDNT TURN IT OFF. ASKED OTHER NURSES IF THEY HAD SHUT IT OFF, WITH NO ANSWERS STILL. TRIED TO FLUSH PICC RED LINE WITHOUT SUCCESS AT THIS TIME. [facility]. WAS TOLD I COULD RUN [place], [place], AND [address] ON [address] WITH TPN. TPN WOULD HAVE TO BE STOPPED IF VANC INFUSING. PATIET HAS NO COMPLAINTS AT THIS TIME. CALL LIGHT WITHIN REACH.
[2019-05-28 17:45] VITALS: BP 165/76
[2019-05-28 21:10] VITALS: BP 147/64; BP 168/79
[2019-05-29 00:37] VITALS: BP 151/73
[2019-05-29 04:42] LABS: BASOPHILS 0.3 % (0-2); EOSINOPHILS 5.5 % (0-7); HEMATOCRIT 31.1 % (36.0-48.0); HEMOGLOBIN 10.1 g/dL (12-16); IMMATURE GRANULOCYTES 0.4 % (0-5); MCH 31.7 pg (26.0-34.0); MCHC 32.5 g/dL (31.0-37.0); MCV 97.5 fL (80.0-100.0); MEAN PLATELET VOLUME 9.5 fL (7.4-10.4); MONOCYTES 9.4 % (2-11); NEUTROPHILS 71.4 % (40-80); PLATELET COUNT 417 10x3/uL (130-400); RBC 3.19 10x6/uL (4.00-5.40); RDW 18.7 % (11.5-14.5); WBC 10.2 10x3/uL (4.8-10.8)
[2019-05-29 04:50] LABS: CALC OSMOLALITY 277 mosm/kg (275-300); CALCIUM 8.2 mg/dL (8.5-10.1); CARBON DIOXIDE 35.2 mmol/L (21.0-32.0); CHLORIDE - SERUM 104 mmol/L (98-107); CREATININE - SERUM 0.5 mg/dL (0.6-1.3); GLUCOSE 107 mg/dL (74-106); MAGNESIUM - SERUM 2.2 mg/dL (1.8-2.4); PHOSPHOROUS 2.1 mg/dL (2.5-4.9); POTASSIUM - SERUM 3.2 mmol/L (3.5-5.1); SODIUM 141 mmol/L (136-145); UREA NITROGEN 5 mg/dL (7-18); eGFR NON AFRICAN AMERICAN > 90 mL/min (90-120)
[2019-05-29 05:49] VITALS: BP 130/58
[2019-05-29 08:40] VITALS: BP 165/69
[2019-05-29 13:04] VITALS: BP 160/86
--- NOTE | 2019-05-29 13:19 | MORECARE ---
CASE MANAGEMENT DISCHARGE SUMMARY PATIENT: AMBREEN SCOTT UNIT: [id number] ADM DATE: 05/26/19 AGE: 73 : 46 SEX: F ROOM/BED: D.2224 AUTHOR: MIGUEL SALGUERO PHYSICIAN: REFERRING PHYSICIAN: SERA MOORE MD DATE OF SERVICE: 05/29/19 Discharge Plan Patient Name: AMBREEN SCOTT [facility] [facility] 1945 Planned Disposition: Home with Home Health Anticipated Discharge Date: Discharge Date: Expected LOS: Initial Reviewer: [email or web address] Initial Review Date: 05/29/2019 Generated: 05/29/19 2:19 pm DCPIA - Discharge Planning Initial Assessment Updated by [id number]: Kari Robledo on 05/29/19 1:13 pm * Is the patient Alert and Oriented? Yes * PCP Dr. Dianne Quintana at [facility] Pharmacy [facility] * Preadmission Environment Home with Family * ADLs Partial Dependent * Partial ADLs (Assistance needed) Ambulation * Equipment Bedside Commode Nebulizer Oxygen Walker * List name and contact numbers for known caregivers / representatives who currently or will assist patient after discharge: Shaq Scott - spouse - C [phone] or [phone] * Verbal permission to speak to the caregivers and representatives has been obtained from the patient. Yes * Community resources currently utilized Home Health * Please name any agencies selected above. [facility] * Additional services required to return to the preadmission environment? Yes * Can the patient safely return to the preadmission environment? Yes * Has this patient been hospitalized within the prior 30 days at any hospital? Yes Patient Name: AMBREEN SCOTT Page 13791 at 1319 All edits/amendments must be made on the electronic document DICTATION DATE: 05/29/19 1319 UMBRELLA SUPERVISOR: ROGELIO 05/29/19 1319 RPT#: [id number] DC DATE: STATUS: ADM IN [facility] [address] [place] [address] END OF REPORT
--- NOTE | 2019-05-29 13:26 | MORECARE ---
CASE MANAGEMENT DISCHARGE SUMMARY PATIENT: AMBREEN SCOTT UNIT: [id number] ADM DATE: 05/26/19 AGE: 73 : 46 SEX: F ROOM/BED: D.2224 AUTHOR: JOSE M,DOC PHYSICIAN: REFERRING PHYSICIAN: SERA MOORE MD DATE OF SERVICE: 05/29/19 Discharge Plan Patient Name: AMBREEN SCTOT Facility: [facility]:[place] : 1945 Planned Disposition: Home with Home Health Anticipated Discharge Date: Discharge Date: Expected LOS: Initial Reviewer: [id number] Initial Review Date: 05/29/2019 Generated: 05/29/19 2:26 pm Comments DCP- Discharge Planning Updated by [id number]: Kari Robledo on 05/29/19 12:[address] Patient Name: AMBREEN SCOTT Admission Status: ER Accout number: [id number] Admission Date: 05-26-2019 : 1945 Admission Diagnosis: Attending: SERA MOORE Current LOS: 3 Anticipated DC Date: Planned Disposition: Home with Home Health Primary Insurance: MEDICARE A & B Discharge Planning Comments: CM met with patient to discuss discharge planning, she is alone in the room. She states she lives with her . She states she would like to return home with her . She does agree to home health if needed. She does not want to go home with TPN and antibiotics. I discussed inpatient rehab, at this time she does not seem receptive to go to inpatient rehab. She started to cry and states she needs to speak with her first. I did call her per her request and he would like her to go to rehab if his agrees. Patient became upset and asked for med for nausea. I informed Aubrie that she needed med for nausea. She did not want to sign a JAXON at this time for home health or DME, CM will need to meet with her again at a later time. CM will continue to follow and assist with discharge planning/needs. Watershed Engineer: Kari Robledo DCPIA - Discharge Planning Initial Assessment Updated by [email or web address]: Kari Robledo on 05/29/19 1:13 pm * Is the patient Alert and Oriented? Yes * PCP Dr. Dianne Quintana at [facility] Pharmacy [facility] [address] * Preadmission Environment Home with Family * ADLs Partial Dependent * Partial ADLs (Assistance needed) Ambulation * Equipment Bedside Commode Nebulizer Oxygen Walker * List name and contact numbers for known caregivers / representatives who currently or will assist patient after discharge: Shaq Scott - spouse - C [phone] or H [phone] * Verbal permission to speak to the caregivers and representatives has been obtained from the patient. Yes * Community resources currently utilized Home Health * Please name any agencies selected above. [facility] * Additional services required to return to the preadmission environment? Yes * Can the patient safely return to the preadmission environment? Yes * Has this patient been hospitalized within the prior 30 days at any hospital? Yes Last DP export: 05/29/19 12:19 pm Patient Name: AMBREEN SCOTT Page 80860 at 1326 All edits/amendments must be made on the electronic document DICTATION DATE: 05/29/19 1325 SENIOR AUDITOR: ROGELIO 05/29/19 1325 RPT#: [id number] DC DATE: STATUS: ADM IN [facility] [address] [place] [address] END OF REPORT
[2019-05-29 16:40] LABS: VANCOMYCIN - TROUGH 10.8 ug/mL (10.0-20.0)
[2019-05-29 17:20] VITALS: BP 158/72
--- NOTE | 2019-05-29 19:22 | NUR ---
FAMILY ARE PRESENT AND PT AND FAMILY PRESENT WITH QUESTIONS I ATTEMPTED TO FULLY ANSWER..SKIN WARM AND DRY LUNGS WITH EXPIRITORY WHEEZES PIC TO UPPER RT ARM PATENT I DID NOT OBSERVE BUTTOCS AT THIS TIME DED LOW AND LOCKED WITH CALL LIGHT IN REACH
--- NOTE | 2019-05-29 19:45 | NUR ---
CO OF ABD PAIN AND MSO4 GIVEN AT THIS TIME
[2019-05-29 19:52] VITALS: BP 161/88
--- NOTE | 2019-05-29 21:21 | NUR ---
GLUCOSE 132
--- NOTE | 2019-05-29 23:31 | NUR ---
I have reviewed this patient and I concur with the Shift Assessment completed by the Licensed Practical Nurse today this shift.
[2019-05-30 04:21] VITALS: BP 155/82
[2019-05-30 06:55] LABS: BASOPHILS 0.4 % (0-2); EOSINOPHILS 7.7 % (0-7); HEMATOCRIT 32.1 % (36.0-48.0); HEMOGLOBIN 10.2 g/dL (12-16); IMMATURE GRANULOCYTES 0.6 % (0-5); MCH 31.6 pg (26.0-34.0); MCHC 31.8 g/dL (31.0-37.0); MCV 99.4 fL (80.0-100.0); MEAN PLATELET VOLUME 9.3 fL (7.4-10.4); MONOCYTES 10.6 % (2-11); NEUTROPHILS 66.7 % (40-80); PLATELET COUNT 405 10x3/uL (130-400); RBC 3.23 10x6/uL (4.00-5.40); RDW 18.2 % (11.5-14.5); WBC 8.4 10x3/uL (4.8-10.8)
[2019-05-30 07:19] LABS: CALC OSMOLALITY 279 mosm/kg (275-300); CALCIUM 8.4 mg/dL (8.5-10.1); CHLORIDE - SERUM 105 mmol/L (98-107); CREATININE - SERUM 0.5 mg/dL (0.6-1.3); GLUCOSE 110 mg/dL (74-106); PHOSPHOROUS 2.7 mg/dL (2.5-4.9); POTASSIUM - SERUM 4.1 mmol/L (3.5-5.1); SODIUM 141 mmol/L (136-145); UREA NITROGEN 7 mg/dL (7-18); eGFR NON AFRICAN AMERICAN > 90 mL/min (90-120)
--- NOTE | 2019-05-30 07:34 | NUR ---
I have reviewed this patient and I concur with the Shift Assessment completed by the Licensed Practical Nurse today this shift.
[2019-05-30 07:48] LABS: MAGNESIUM - SERUM 2.3 mg/dL (1.8-2.4)
--- NOTE | 2019-05-30 08:03 | NUR ---
ALERT AND ORIENTED. LUNGS WITH BILATERAL EXPIRATORY WHEEZES. HEART SOUNDS S1 AND S2 HEARD IN ALL MANUEL. BOWEL SOUNDS ACTIVE X 4. PU X 2 TO COCCYX WITH DRSG C/D/I. SKIN OTHERWISE INTACT WITHOUT REDNESS. GRISELDA PICC PATENT WITHOUT REDNESS. O2 IN PLACE AT 2L. DENIES PAIN. DENIES NEEDS. BED LOW. FALL PRECAUTIONS IN PLACE. CALL ALVAREZ AND PERSONAL ITEMS IN REACH. WILL CONTINUE TO MONITOR.
--- NOTE | 2019-05-30 08:37 | NUR ---
Nutrition follow-up Chart reviewed Will continue current TPN RDN following
--- NOTE | 2019-05-30 10:30 | NUR ---
PATIENT SLEEPING. WILL CONTINUE TO MONITOR.
[2019-05-30 13:28] VITALS: BP 140/76
[2019-05-30 16:34] VITALS: BP 137/71
--- NOTE | 2019-05-30 17:44 | NUR ---
PATIENT SLEEPING. WILL CONTINUE TO MONITOR.
--- NOTE | 2019-05-30 18:25 | NUR ---
RESTING IN BED. BED LOW. FALL PRECAUTIONS IN PLACE. CALL ALVAREZ AND PERSONAL ITEMS IN REACH. DENIES PAIN. DENIES NEEDS.
--- NOTE | 2019-05-30 19:15 | NUR ---
RECEIVED CARE FROM DAY NURSE. IN HIGH FOWLERS POSITION. REPORTS NO NEEDS AT THIS TIME. IV INFUSING PER ORDER TO PATENT RIGHT PICC. CALL LIGHT AT SIDE.
[2019-05-30 20:00] VITALS: BP 163/58
[2019-05-31] VITALS: BP 144/50
--- NOTE | 2019-05-31 03:00 | NUR ---
I have reviewed this patient and I concur with the Shift Assessment completed by the Licensed Practical Nurse today this shift.
[2019-05-31 04:00] VITALS: BP 138/64
[2019-05-31 05:41] LABS: BASOPHILS 0.5 % (0-2); EOSINOPHILS 8.7 % (0-7); HEMATOCRIT 33.7 % (36.0-48.0); HEMOGLOBIN 10.5 g/dL (12-16); IMMATURE GRANULOCYTES 0.4 % (0-5); LYMPHOCYTES 13.7 % (15-50); MCH 31.7 pg (26.0-34.0); MCHC 31.2 g/dL (31.0-37.0); MEAN PLATELET VOLUME 9.6 fL (7.4-10.4); MONOCYTES 11.2 % (2-11); NEUTROPHILS 65.5 % (40-80); PLATELET COUNT 343 10x3/uL (130-400); RBC 3.31 10x6/uL (4.00-5.40); RDW 17.9 % (11.5-14.5); WBC 7.5 10x3/uL (4.8-10.8)
[2019-05-31 05:44] LABS: MCV 101.8 fL (80.0-100.0)
[2019-05-31 05:48] LABS: CALC OSMOLALITY 281 mosm/kg (275-300); CALCIUM 8.7 mg/dL (8.5-10.1); CARBON DIOXIDE 36.5 mmol/L (21.0-32.0); CHLORIDE - SERUM 105 mmol/L (98-107); CREATININE - SERUM 0.5 mg/dL (0.6-1.3); GLUCOSE 118 mg/dL (74-106); MAGNESIUM - SERUM 2.5 mg/dL (1.8-2.4); PHOSPHOROUS 3.1 mg/dL (2.5-4.9); POTASSIUM - SERUM 4.3 mmol/L (3.5-5.1); SODIUM 142 mmol/L (136-145); UREA NITROGEN 8 mg/dL (7-18); eGFR NON AFRICAN AMERICAN > 90 mL/min (90-120)
--- NOTE | 2019-05-31 07:45 | NUR ---
ALERT AND ORIENTED. LUNGS WITH EXPIRATORY WHEEZES THROUGHOUT. HEART SOUNDS S1 AND S2 HEARD IN ALL MANUEL. BOWEL SOUNDS ACTIVE X 4. DRSG TO ABD C/D/I. DRSG TO PU ON COCCYX C/D/I. GRISELDA PICC PATENT WITHOUT REDNESS. DENIES PAIN. DENIES NEEDS. BED LOW. FALL PRECAUTIONS IN PLACE. CALL ALVAREZ AND PERSONAL ITEMS IN REACH. WILL CONTINUE TO MONITOR.
--- NOTE | 2019-05-31 10:18 | NUR ---
PATIENT SLEEPING. WILL CONTINUE TO MONITOR.
[2019-05-31 11:36] VITALS: BP 143/76
--- NOTE | 2019-05-31 12:34 | NUR ---
PATIENT SLEEPING. AT BEDSIDE. WILL CONTINUE TO MONITOR.
--- NOTE | 2019-05-31 14:08 | NUR ---
PATIENT SLEEPING. WILL CONTINUE TO MONITOR.
--- NOTE | 2019-05-31 15:50 | NUR ---
DRSG CHANGED TO ABD PER ORDER.
[2019-05-31 16:31] VITALS: BP 150/75
--- NOTE | 2019-05-31 17:53 | NUR ---
RESTING IN BED. DENIES NEEDS. FAMILY AT BEDSIDE. BED LOW. FALL PRECAUTIONS IN PLACE. CALL ALVAREZ AND PERSONAL ITEMS IN REACH. WILL CONTINUE TO MONITOR.
--- NOTE | 2019-05-31 19:15 | NUR ---
RECEIDEC CARE FROM DAY NURSE. IN HIGH FOWLERS POSITON. EYES CLOSED, RESP EVEN AND UNALBORED. CALL LIGHT, SPOUSE, AND COMPANY AT SIDE. IV INFUSING PER ORDER TO RIGHT PICC.
[2019-05-31 20:00] VITALS: BP 132/84
--- NOTE | 2019-06-01 03:00 | NUR ---
I have reviewed this patient and I concur with the Shift Assessment completed by the Licensed Practical Nurse today this shift.
[2019-06-01 04:00] VITALS: BP 149/76
[2019-06-01 06:31] LABS: BASOPHILS 0.6 % (0-2); EOSINOPHILS 5.3 % (0-7); HEMATOCRIT 32.9 % (36.0-48.0); IMMATURE GRANULOCYTES 0.5 % (0-5); LYMPHOCYTES 13.8 % (15-50); MCH 31.3 pg (26.0-34.0); MCHC 30.4 g/dL (31.0-37.0); MCV 102.8 fL (80.0-100.0); MEAN PLATELET VOLUME 9.7 fL (7.4-10.4); MONOCYTES 10.2 % (2-11); NEUTROPHILS 69.6 % (40-80); PLATELET COUNT 369 10x3/uL (130-400); RDW 17.3 % (11.5-14.5); WBC 8.9 10x3/uL (4.8-10.8)
[2019-06-01 06:32] LABS: CALC OSMOLALITY 277 mosm/kg (275-300); CALCIUM 8.5 mg/dL (8.5-10.1); CARBON DIOXIDE 38.5 mmol/L (21.0-32.0); CHLORIDE - SERUM 102 mmol/L (98-107); CREATININE - SERUM 0.4 mg/dL (0.6-1.3); GLUCOSE 95 mg/dL (74-106); MAGNESIUM - SERUM 2.4 mg/dL (1.8-2.4); PHOSPHOROUS 2.7 mg/dL (2.5-4.9); POTASSIUM - SERUM 4.5 mmol/L (3.5-5.1); SODIUM 140 mmol/L (136-145); UREA NITROGEN 10 mg/dL (7-18); eGFR NON AFRICAN AMERICAN > 90 mL/min (90-120)
[2019-06-01 08:52] VITALS: BP 157/76
[2019-06-01 16:35] VITALS: BP 151/68
--- NOTE | 2019-06-01 19:20 | NUR ---
IN BED WITH FAMILY AT BEDSIDE, PICC TO RIGHT UPPER ARM PATENT AND INFUSING PER ORDERS, SHOWS NO S/S OF ANY ACUTE DISTRESS. ABLE TO VOICE ALL NEEDS, REQUESTS PAIN MEDS AT THIS TIME, GIVEN PER ORDERS. DENIES ANY FURTHER NEEDS. WILL NOTE ANY CHANGE.
[2019-06-01 20:00] VITALS: BP 114/66
[2019-06-02] VITALS (11 sets, daily range): BP systolic 113–168; BP diastolic 62–84
--- NOTE | 2019-06-02 03:41 | NUR ---
RESTING QUIETLY WITH EYES CLOSED AT THIS TIME. SHOWS NO S/S OF ANY DISTRESS AT THIS TIME. TPN AND FLUIDS INFUSING VIA PICC PER ORDERS. WILL NOTE ANY CHANGE.
--- NOTE | 2019-06-02 03:56 | NUR ---
I have reviewed this patient and I concur with the Shift Assessment completed by the Licensed Practical Nurse today this shift.
[2019-06-02 04:30] LABS: BASOPHILS 0.6 % (0-2); EOSINOPHILS 6.7 % (0-7); HEMATOCRIT 31.2 % (36.0-48.0); HEMOGLOBIN 9.7 g/dL (12-16); IMMATURE GRANULOCYTES 0.5 % (0-5); LYMPHOCYTES 11.9 % (15-50); MCH 31.8 pg (26.0-34.0); MCHC 31.1 g/dL (31.0-37.0); MCV 102.3 fL (80.0-100.0); MEAN PLATELET VOLUME 9.9 fL (7.4-10.4); MONOCYTES 9.7 % (2-11); NEUTROPHILS 70.6 % (40-80); PLATELET COUNT 329 10x3/uL (130-400); RBC 3.05 10x6/uL (4.00-5.40); RDW 17.1 % (11.5-14.5); WBC 7.7 10x3/uL (4.8-10.8)
[2019-06-02 04:33] LABS: INR 1.11 (0.85-1.17); PROTIME 13.8 SECONDS (11.6-15.0)
[2019-06-02 04:34] LABS: APTT 37.4 SECONDS (22.8-39.4)
[2019-06-02 04:39] LABS: CALC OSMOLALITY 276 mosm/kg (275-300); CALCIUM 8.4 mg/dL (8.5-10.1); CARBON DIOXIDE 37.1 mmol/L (21.0-32.0); CHLORIDE - SERUM 102 mmol/L (98-107); CREATININE - SERUM 0.4 mg/dL (0.6-1.3); GLUCOSE 95 mg/dL (74-106); POTASSIUM - SERUM 4.3 mmol/L (3.5-5.1); SODIUM 140 mmol/L (136-145); UREA NITROGEN 8 mg/dL (7-18); eGFR NON AFRICAN AMERICAN > 90 mL/min (90-120)
--- NOTE | 2019-06-02 19:42 | NUR ---
RESTING IN BED WITH EYES CLOSED, RESPIRATIONS EVEN AND UNLABORED. PICC TO RIGHT UPPER ARM IS PATENT WITH TPN AND FLUIDS INFUSING PER ORDERS. ABLE TO VOICE NEEDS, CALL LIGHT IN REACH. WILL NOTE ANY CHANGE.
--- NOTE | 2019-06-03 01:13 | NUR ---
RESTING COMFORTABLY AT THIS TIME. NO S/S OF ANY ACUTE DISTRESS NOTED. VS ALL WNL. ABLE TO VOICE NEEDS. WILL NOTE ANY CHANGE.
[2019-06-03 01:25] VITALS: BP 138/69
--- NOTE | 2019-06-03 02:44 | NUR ---
I have reviewed this patient and I concur with the Shift Assessment completed by the Licensed Practical Nurse today this shift.
[2019-06-03 04:48] VITALS: BP 143/69
--- NOTE | 2019-06-03 07:15 | NUR ---
ALERT AND ORIENTED, RESTING IN BED. UP AD TALITA. ON 3L O2, NC. WHEEZES ASCULTATED BILATERAL LUNGS ALL LOBES. MEPILEX TO SACRAL AREA, C/D/I. RIGHT ARM PICC, NS INFUSING @ 30ML/HR. SITE PATENT WITHOUT REDNESS OR SWELLING. TPN INFUSING @ 40ML/HR. PT DENIES ANY NEEDS AT THIS TIME. CALL LIGHT IN REACH. WILL CONTINUE TO MONITOR.
[2019-06-03 08:48] VITALS: BP 167/73
--- NOTE | 2019-06-03 10:00 | NUR ---
NUTRITION F/U CASE MGMT REPORTS PT HAS DC ORDERS. ENTERED NURSING MESSAGE TO TAPER AND DC TPN. DC'D TPN IN MED ORDERS. RD FOLLOWING
--- NOTE | 2019-06-03 10:09 | MORECARE ---
CASE MANAGEMENT DISCHARGE SUMMARY PATIENT: AMBREEN SCOTT UNIT: [id number] ADM DATE: 05/26/19 AGE: 73 : 47 SEX: F ROOM/BED: D.2224 AUTHOR: JOSE M,DOC PHYSICIAN: REFERRING PHYSICIAN: SERA MOORE MD DATE OF SERVICE: 06/03/19 Discharge Plan Patient Name: AMBREEN SCOTT Facility: [facility]:[place] : 1945 Planned Disposition: Home with Home Health Anticipated Discharge Date: Discharge Date: Expected LOS: Initial Reviewer: [email or web address] Initial Review Date: 05/29/2019 Generated: 06/03/19 11:09 am DCP- Discharge Planning Updated by [email or web address]: Kari Robledo on 05/29/19 12:[address] Patient Name: AMBREEN SCOTT Admission Status: ER Accout number: [id number] Admission Date: 05-26-2019 : 1945 Admission Diagnosis: Attending: SERA MOORE Current LOS: 3 Anticipated DC Date: Planned Disposition: Home with Home Health Primary Insurance: MEDICARE A & B Discharge Planning Comments: CM met with patient to discuss discharge planning, she is alone in the room. She states she lives with her . She states she would like to return home with her . She does agree to home health if needed. She does not want to go home with TPN and antibiotics. I discussed inpatient rehab, at this time she does not seem receptive to go to inpatient rehab. She started to cry and states she needs to speak with her first. I did call her per her request and he would like her to go to rehab if his agrees. Patient became upset and asked for med for nausea. I informed Aubrie that she needed med for nausea. She did not want to sign a JAXON at this time for home health or DME, CM will need to meet with her again at a later time. CM will continue to follow and assist with discharge planning/needs. Feedlot Manager: Kari Robledo DCPIA - Discharge Planning Initial Assessment Updated by [email or web address]: Kari Robledo on 05/29/19 1:13 pm * Is the patient Alert and Oriented? Yes * PCP Dr. Dianne Quintana at [facility] * Preadmission Environment Home with Family * ADLs Partial Dependent * Partial ADLs (Assistance needed) Ambulation * Equipment Bedside Commode Nebulizer Oxygen Walker * List name and contact numbers for known caregivers / representatives who currently or will assist patient after discharge: Shaq Scott - spouse - C [phone] or H [phone] * Verbal permission to speak to the caregivers and representatives has been obtained from the patient. Yes * Community resources currently utilized Home Health * Please name any agencies selected above. [place] * Additional services required to return to the preadmission environment? Yes * Can the patient safely return to the preadmission environment? Yes * Has this patient been hospitalized within the prior 30 days at any hospital? Yes External Providers External Provider: [facility] Next Contact Date: Service Request Date: Service Type: Resolution: Reviewer: Comments: Coverage Notice Reviewer: [id number] Nadiya Parry Notice Issued Date-Time: 06/03/2019 9:58 Notice Type: IM Discharge Notice Notice Delivered To: Patient Relationship to Patient: Self Paint Roller Covers Supervisor Name: Delivery Method: HAND - Hand Delivered Ronel Days: Prior Verbal Notification: Recipient Understood Notice: Yes Recipient Signature: Yes Med Rec Note Co-signed by Attending: Coverage Notice Comment: Last DP export: 05/29/19 12:26 pm Patient Name: AMBREEN SCOTT Page [id number] at 1009 All edits/amendments must be made on the electronic document DICTATION DATE: 06/03/19 1009 COMPRESS MACHINE OPERATOR: ROGELIO 06/03/19 1009 RPT#: [id number] DC DATE: STATUS: ADM IN [facility] [address] [place] [address] END OF REPORT
--- NOTE | 2019-06-03 10:44 | MORECARE ---
CASE MANAGEMENT DISCHARGE SUMMARY PATIENT: AMBREEN SCOTT UNIT: [id number] ADM DATE: 05/26/19 AGE: 73 : 46 SEX: F ROOM/BED: D.2224 AUTHOR: JOSE MDOC PHYSICIAN: REFERRING PHYSICIAN: SERA MOORE MD DATE OF SERVICE: 06/03/19 Discharge Plan Patient Name: AMBREEN SCOTT Facility: [facility]:[place] : 1945 Planned Disposition: Home with Home Health Anticipated Discharge Date: Discharge Date: Expected LOS: Initial Reviewer: [email or web address] Initial Review Date: 05/29/2019 Generated: 06/03/19 11:43 am Comments DCP- Discharge Planning Updated by [email or web address]: Ai Parry on 06/03/19 9:[address] Patient Name: AMBREEN SCOTT Encounter No: [id number] : 1945 Primary Insurance: MEDICARE A & B Anticipated DC Date: Planned Disposition: Home with Home Health External Planned Provider: : DCP follow-up note: Patient and family in agreement with discharge plan. CURRENT WITH [facility] AND THEY WILL SEE HER TOMORROW. No changes to plan. Case management will follow and assist as needed. Ai Parry DCP- Discharge Planning Updated by [email or web address]: Kari Robledo on 05/29/19 12:[address] Patient Name: AMBREEN SCOTT Admission Status: ER Accout number: [id number] Admission Date: 05-26-2019 : 1945 Admission Diagnosis: Attending: SERA MOORE Current LOS: 3 Anticipated DC Date: Planned Disposition: Home with Home Health Primary Insurance: MEDICARE A & B Discharge Planning Comments: CM met with patient to discuss discharge planning, she is alone in the room. She states she lives with her . She states she would like to return home with her . She does agree to home health if needed. She does not want to go home with TPN and antibiotics. I discussed inpatient rehab, at this time she does not seem receptive to go to inpatient rehab. She started to cry and states she needs to speak with her first. I did call her per her request and he would like her to go to rehab if his agrees. Patient became upset and asked for med for nausea. I informed Aubrie that she needed med for nausea. She did not want to sign a JAXON at this time for home health or DME, CM will need to meet with her again at a later time. CM will continue to follow and assist with discharge planning/needs. Grain Farmworker: Kari Robledo DCPIA - Discharge Planning Initial Assessment Updated by [email or web address]: Kari Venkat on 05/29/19 1:13 pm * Is the patient Alert and Oriented? Yes * PCP Dr. Dianne Quintana at [facility] [address] * Preadmission Environment Home with Family * ADLs Partial Dependent * Partial ADLs (Assistance needed) Ambulation * Equipment Bedside Commode Nebulizer Oxygen Walker * List name and contact numbers for known caregivers / representatives who currently or will assist patient after discharge: Shaq Scott - spouse - C [phone] or H [phone] * Verbal permission to speak to the caregivers and representatives has been obtained from the patient. Yes * Community resources currently utilized Home Health * Please name any agencies selected above. [place] * Additional services required to return to the preadmission environment? Yes * Can the patient safely return to the preadmission environment? Yes * Has this patient been hospitalized within the prior 30 days at any hospital? Yes Coverage Notice Reviewer: [email or web address] Nadiya Parry Notice Issued Date-Time: 06/03/2019 9:58 Notice Type: IM Discharge Notice Notice Delivered To: Patient Relationship to Patient: Self [place] St[employer] Machine Operator Name: Delivery Method: HAND - Hand Delivered Ronel Days: Prior Verbal Notification: Recipient Understood Notice: Yes Recipient Signature: Yes Med Rec Note Co-signed by Attending: Coverage Notice Comment: Last DP export: 06/03/19 9:09 am Patient Name: AMBREEN SCOTT Page 32450 at 1044 All edits/amendments must be made on the electronic document DICTATION DATE: 06/03/191042 EXCEPTIONAL NEEDS TEACHER: ROGELIO 06/03/191042 RPT#: [id number] DC DATE: STATUS: ADM IN [facility] [address] [place] [address] END OF REPORT
--- NOTE | 2019-06-03 13:52 | NUR ---
DISCHARGED PT HOME WITH FRIEND VIA WHEELCHAIR ACCOMPANIED BY STAFF. WENT OVER DISCHARGE INSTRUCTIONS WITH PATIENT, PATIENT VERBALIZED UNDERSTANDING. MIDLINE DISCONTINUED, CATHETER TIP INTACT. PT DENIES ANY NEEDS.
== END 2019-06-03 14:42 | disposition home health service (06) | DRG 393 ==
LOC: D.ER 02:35 → D.MS 03:51
PROVIDERS: Family Medicine; Radiology Diagnostic Radiology; ADMIT Surgery; ATTEND Surgery
PROC: 05HY33Z Insertion of Infusion Device into Upper Vein, Percutaneous Approach (ICD-10-PCS; principal; 2019-05-26)
PROC: 0W9H3ZZ Drainage of Retroperitoneum, Percutaneous Approach (ICD-10-PCS; 2019-06-02)
DX: K91.89 Other postprocedural complications and disorders of digestive system (principal); A41.9 Sepsis, unspecified organism; N73.0 Acute parametritis and pelvic cellulitis; J44.9 Chronic obstructive pulmonary disease, unspecified